=== PATIENT | female | born 1945 | race Caucasian/White ===

== ENCOUNTER 2022-06-18 11:58 | Outpatient (CLI) | payer MEDICARE, BC, SELFPAY ==
[2022-06-18 14:21] LABS: Albumin* 4.4 g/dL (3.3-5.0)
[2022-06-18 14:22] LABS: Chloride* 102 mmol/L (96-114); Potassium* 5.1 mmol/L (3.6-5.1); Sodium* 135 mmol/L (135-149)
[2022-06-18 14:24] LABS: Bilirubin Total* 1.2 mg/dL (0.1-1.5); Carbon Dioxide* 30 mmol/L (20-32); Cholesterol* 185 mg/dL (90-199); Creatinine* 0.7 mg/dL (0.5-1.5); Estimated Glomerular Filt Rate 90 ml/min
[2022-06-18 14:25] LABS: Alanine Aminotransferase* 24 U/L (4-35); Alkaline Phosphatase* 56 U/L (40-150); Aspartate Amino Transferase* 23 U/L (12-35); Blood Urea Nitrogen* 12 mg/dL (7-30); Calcium* 9.3 mg/dL (8.4-10.6); Glucose* 89 mg/dL (60-115); HDL Cholesterol* 75 mg/dL (>=50); LDL Cholesterol Calculated 91 mg/dL (<100); Total Protein* 6.6 g/dL (6.0-8.3); Triglycerides* 97 mg/dL (40-149)
[2022-06-18 14:48] LABS: Creatinine Urine 110.6 mg/dL
[2022-06-18 14:51] LABS: Microalbumin Creatinine Ratio 10 mg/g (0-30); Microalbumin Urine 2 mg/dL
== END 2022-06-18 11:59 | disposition home or self-care (01) ==
PROVIDERS: PCP Physician Assistant Medical; Visit Provider Physician Assistant Medical
DX: E78.5 Hyperlipidemia, unspecified (principal); I10 Essential (primary) hypertension; E87.1 Hypo-osmolality and hyponatremia; F32.4 Major depressive disorder, single episode, in partial remission
CPT/HCPCS: 80053; 80061; 82043; 82570

== ENCOUNTER 2023-04-25 08:52 | Outpatient (RCR) | payer MEDICARE, BC, SELFPAY ==
--- NOTE | 2023-05-01 12:39 | PT.OPE ---
PT [place] Outpatient Eval PT [facility] Outpatient Eval Start: 05/01/23 11:00 Freq: Status: Active Protocol: Document 04/25/23 17:30 CORIE (Rec: 05/01/23 12:33 CORIE [id number]) E-signed By Pedro Pablo Decker DPT, MS Physical Therapy Outpatient Evaluation Insurance Information Recert Due Date 07/24/23 Insurance Name Medicare B Medical Diagnosis Unilateral primary osteoarthritis, right hip; presence of right artificial hip joint Treating Diagnosis Decreased R hip ROM and flexibility, imbalance, gait dysfunction and R LE weakness. Subjective Subjective Pt is an otherwise healthy 78 y.o female who presents to PT prior to R anterior LOIS on 05/05/23 at [facility] with c/o chronic high levels of R hip pain since hiking along [facility] 11/2022. Walking has been very difficult and limited by pain but pt received recent OP PT at [facility] near her apartment for R LE strength and flexibility. Looking forward to surgery to return to walking, hiking, yoga, travelling and exercise classes at the [facility]. Lives alone in a 3rd story apartment with an elevator. Her daughter will provide assistance following surgery. PMH includes R hip OA . AGGR factors: walking, standing, squatting, sleeping, uneven surfaces. ALLEV factors: rest, ice, ibuprofen. Pain Comments -01/06 Current Work Status Retired Preferred Name Pat Precautions Therapy Limitations/Systems Review Not Limited Objective Functional Test Performed & Score LEFS: 8 Assessment Assessment/Impression Objectively, pt displays decreased R hip ROM and flexibility, imbalance, gait dysfunction and R LE weakness. R hip pain and R LE weakness leading to compensations with gait and pt plans on using a SPC or trekking poles once she is safe to progress from a FWW. Good response to instruction in her post-op HEP with pt currently performing HEP exercises that are more challenging than the post-op HEP provided, which she will continue up until surgery. She plans on receiving post-op OP PT at [facility] since this is near her apartment and current episode of care will be D/C. Primary Functional Limitations Walking, standing, squatting, sleeping, uneven surfaces Plan of Care Rehabilitation Potential Excellent Physical Therapy Goals Short-term goals to be completed in 1 week: 1. Pt will be independent and compliant with her HEP in preparation for surgery. MET Coordination/Communication With Referral Source Treatment Plan/Direct Interventions Therapeutic Exercises Frequency/Duration 1 visit prior to surgery then continuing PT at [facility] PT Patient Will Be Discharged From Therapy Completion of LTG(s),Skills Plateau,Independent w/HEP, Independently Progressing Evaluation Billing Untimed Code Treatment Minutes 26 Complexity Moderate Certification Information Initial Certification Date 04/25/23 Ending Certification Date 07/24/23 Provider Signature Shows Agreement With POC & Medical Necessity Physician Signature & Date Requested Please Sign/Date Here Physician Comment/Change : Physician NPI Number #
== END 2023-04-28 10:26 | disposition home or self-care (01) ==
PROVIDERS: PCP Physician Assistant Medical; Visit Provider Orthopaedic Surgery Sports Medicine
DX: M16.11 Unilateral primary osteoarthritis, right hip (principal); Z51.89 Encounter for other specified aftercare
CPT/HCPCS: 97110; 97162

== ENCOUNTER 2023-05-03 09:39 | Outpatient (CLI) | payer MEDICARE, BC, SELFPAY | END 2023-05-03 09:40 | disposition home or self-care (01) | PROVIDERS: PCP Physician Assistant Medical; Visit Provider Family Medicine | DX: Z01.818 Encounter for other preprocedural examination (principal) | CPT/HCPCS: 36415; 86850; 86900; 86901 ==

== ENCOUNTER 2023-05-05 10:26 | Day surgery (SDC) | payer MEDICARE, BC, SELFPAY ==
--- NOTE | 2023-04-28 10:16 | PT.OPE ---
PT [place] Outpatient Eval PT [facility] Outpatient Eval Start: 04/28/23 10:08 Freq: Status: Active Protocol: Document 04/25/23 16:20 [email or web address] (Rec: 04/28/23 10:11 CORIE [id number]) E-signed By Pedro Pablo Decker DPT, MS Physical Therapy Outpatient Evaluation Insurance Information Recert Due Date 07/24/23 Insurance Name Medicare B,Blue Cross/Blue Shield Medical Diagnosis Unilateral primary osteoarthritis, right hip; presence of right artificial hip joint Treating Diagnosis Decreased R hip ROM and flexibility, imbalance, gait dysfunction and R LE weakness Subjective Subjective Pt is an otherwise healthy 78 y.o female who presents to PT prior to R anterior LOIS on 05/05/23 at [facility] with c/o chronic high levels of R hip pain since hiking along [facility] 11/2022. Walking has been very difficult and limited by pain but pt received recent OP PT at [facility] near her apartment for R LE strength and flexibility. Looking forward to surgery to return to walking, hiking, yoga, travelling and exercise classes at the [facility]. Lives alone in a 3rd story apartment with an elevator. Her daughter will provide assistance following surgery. PMH includes R hip OA . AGGR factors: walking, standing, squatting, sleeping, uneven surfaces. ALLEV factors: rest, ice, ibuprofen. Pain Comments -02/06 Current Work Status Retired Preferred Name Pat Precautions Weight Bearing Status Weight Bear as Tolerated Therapy Limitations/Systems Review Not Limited Objective Functional Test Performed & Score LEFS: 10 Assessment Assessment/Impression Objectively, pt displays decreased R hip ROM and flexibility, imbalance, gait dysfunction and R LE weakness. R hip pain and R LE weakness leading to compensations with gait and pt plans on using a SPC or trekking poles once she is safe to progress from a FWW. Good response to instruction in her post-op HEP with pt currently performing HEP exercises that are more challenging than the post-op HEP provided, which she will continue up until surgery. She plans on receiving post-op OP PT at [facility] since this is near her apartment and current episode of care will be D/C. Primary Functional Limitations Walking, standing, squatting, sleeping, uneven surfaces Plan of Care Rehabilitation Potential Excellent Physical Therapy Goals Short-term goals to be completed in 1 week: 1. Pt will be independent and compliant with her HEP in preparation for surgery. MET Coordination/Communication With Referral Source Treatment Plan/Direct Interventions Gait Training,Therapeutic Exercises Frequency/Duration 1 visit prior to surgery then continuing PT at [facility] PT Patient Will Be Discharged From Therapy Completion of LTG(s),Skills Plateau,Independent w/HEP, Independently Progressing Evaluation Billing Untimed Code Treatment Minutes 38 Complexity Moderate Certification Information Initial Certification Date 04/25/23 Ending Certification Date 07/24/23 Provider Signature Shows Agreement With POC & Medical Necessity Physician Signature & Date Requested Please Sign/Date Here Physician Comment/Change : Physician NPI Number #
[2023-05-05] VITALS (22 sets, daily range): BP systolic 110–165; BP diastolic 63–89; PULSE 60–98; RESP 12–18; TEMP 35.9–36.8; O2SAT 93–100; BMI 25.9
[2023-05-05] MEDS: ACETAMINOPHEN 500 MG TABLET 1000 MG PO ×3 (07:08→23:46)
[2023-05-05] MEDS: OXYCODONE (CR) 10 MG TAB.ER.12H PO (07:08)
[2023-05-05] MEDS: fentaNYL 100 MCG/2 ML inj IVP (07:09)
[2023-05-05] MEDS: MIDAZOLAM HCL 1 MG/ML inj IVP (07:09)
--- NOTE | 2023-05-05 10:43 | SUR.PREOP ---
left wrist cat bite no drainage red though
--- NOTE | 2023-05-05 10:54 | SUR.PREOP ---
nasal swab done per order
--- NOTE | 2023-05-05 10:54 | W.PM.H&PU ---
History & Physical Update History & Physical Update H&P Reviewed and patient assessed: No changes noted
--- NOTE | 2023-05-05 11:02 | CRLHL7_ITS ---
For Patients: As a result of the Century Cures Act, medical imaging exams and procedure reports are released immediately into your electronic medical record. You may view this report before your referring provider. If you have questions, please contact your health care provider. INDICATION: Postoperative hip replacement. TECHNIQUE: AP view of the pelvis and lateral view of the right hip. COMPARISON: 05/05/2023 and 03/18/2023. FINDINGS: Postoperative changes of right total hip arthroplasty without evidence of immediate hardware related complication. There is subcutaneous emphysema within the right surgical bed, an expected postoperative finding. There are mild osteoarthritic degenerative changes of the left femoroacetabular joint. No suspicious osseous lesions. IMPRESSION: Status post right total hip arthroplasty without evidence of hardware related complication. Dictated by Durga Awad MD @ 05/06/2023 9:43:02 AM (Electronically Signed)
--- NOTE | 2023-05-05 12:15 | CRLHL7_ITS ---
For Patients: As a result of the Cures Act, medical imaging exams and procedure reports are released immediately into your electronic medical record. You may view this report before your referring provider. If you have questions, please contact your health care provider. Indication: Hip replacement surgery Technique: AP hip fluoroscopic image. Fluoroscopy time 35.0 seconds. Findings/Impression: Hardware from a right total hip arthroplasty is in satisfactory position. Dictated by Juan Latham MD @ 05/05/2023 3:20:31 PM (Electronically Signed)
[2023-05-05] MEDS: SODIUM CHLORIDE 0.9 % (FLUSH) 10 ML SYRINGE IVF (12:28)
[2023-05-05] MEDS: LACTATED RINGERS 1000 ML 1,000 ML 100 ML IV ×2 (12:30→14:09)
--- NOTE | 2023-05-05 12:38 | SUR.PREOP ---
TIME?OUT:?1235 PT/RN/MDA?VERIFICATION?OF?SURGICAL?SITE,?PROCEDURE,?AND?CONSENT OBTAINED?PRIOR?TO?INVASIVE?PROCEDURE.right hip RN BILL RECAPITULATION CLERK PT CONSENT
[2023-05-05] MEDS: TRANEXAMIC ACID 100 MG/ML INJ 1000 MG IV (13:22)
[2023-05-05] MEDS: CEFAZOLIN 2 GM in 0.9 % SODIUM CHLORIDE Mini-bag 100 ML IVPB (13:26)
--- NOTE | 2023-05-05 14:42 | P.ORPRC_ITS ---
Procedure Note Date of procedure: 05/05/23 Procedure: PREOPERATIVE DIAGNOSIS: 1. Right hip osteoarthritis, severe, primary POSTOPERATIVE DIAGNOSIS: 1. Right hip osteoarthritis, severe, primary PROCEDURE: 1. Right total hip arthroplasty-anterior approach 2. 21036 - intraoperative fluoroscopy up to 1 hour. SURGEON: Jd Edmond MD. SENIOR PRODUCT MARKETING MANAGER: Siddhartha Pat Pa-c; GRACIELA Faith - Of note, a skilled curatorial assistant was critical for this case to aid in patient positioning, tissue retraction, limb manipulation/positioning, and closure. ANESTHESIA: Spinal anesthetic EBL: 250 mL IMPLANTS: DePuy J&J uncemented total hip [place] cup size 50, hole eliminator, +0 neutral liner Actis stem, standard offset, size 4 +5 mm ceramic 32mm head COMPLICATIONS: None evident INDICATIONS: The patient is a pleasant 78-year-old female who has experienced severe right hip pain and difficulty bearing weight. Workup included x-rays which revealed severe osteoarthrosis in the hip. Given the deformity, the dysfunction, and the pain, as well as the failure of nonoperative management, recommendation was made for surgery. FINDINGS: Full-thickness chondral loss diffusely throughout the femoral head with osteophytes around the acetabulum. Large effusion upon entering the joint. Significantly sclerotic bone upon reaming the acetabulum, in particular. DESCRIPTION OF PROCEDURE: Following a thorough discussion of risks, benefits, and alternatives consent was obtained and the right hip was marked. The patient was brought to the operating room and placed supine on the operating table. Induction of anesthesia was undertaken. 1 g IV Ancef and 1 g tranexamic acid was administered within 1 hr of incision preoperatively. Proper time-out was performed identifying proper patient, site, procedure. The operative extremity was prepped and draped in the appropriate sterile fashion using ChloraPrep after the patient was positioned on the [place] table with head in neutral alignment and all bony prominences well padded. C-arm fluoroscopic imaging was utilized to confirm proper pelvis rotation and position, and to get true AP films of both the contralateral left, and the affected right hip. This is for comparison. A longitudinal incision was made starting approximately 1 cm distal to the ASIS, and 3-4 cm lateral. The incision was extended distally aiming toward the lateral border the patella. Sharp incision through skin and bovie cautery through the subcutaneous tissue allowed identification of the TFL fascia. This was sharply divided, and the fascia bluntly released from the muscle fibers as we dissected medial. Upon coming to the medial border, we were able to retract the TFL laterally, and penetrated the deeper fascia and identify the crossing circumflex vessels. These were ligated/cauterized. The rectus was elevated from the capsule, and retractors placed laterally and medially along the femoral neck to help with visualization of the capsule. We then performed an inverted T capsulotomy. The capsule was tagged for later repair. Retractors were placed inside the capsule. The femoral neck was visualized after releasing medially down to the lesser trochanter, along the saddle laterally, and up onto the acetabulum. The femoral neck cut was made in line with our preoperative templating. The head was removed in a single piece, and sized. We turned our attention to acetabular preparation. Initially, the labrum was resected from around the perimeter, the pulvinar was excised, allowing us to visualize the false wall. We started the reaming with a 43 mm reamer. This was medialized down to the true wall. We then enlarged our reamers sequentially up to one size less than the selected cup size. We trialed at the same size and found it to have an excellent fit. The selected cup was then opened, inserted, and impacted in line with the goal of 40? of abduction, and 20-25? of anteversion. This was confirmed on C-arm fluoroscopic imaging to be in the appropriate/goal position. Once the cup was placed we placed a hole eliminator and a liner consistent with preop planning. Attention was turned to the femoral preparation. The limb was extended, externally rotated, and adducted. The posteromedial capsule was released, as retractors were placed allowing excellent access to the proximal femur. Initially a box office manager was followed by canal finder followed by various broaches. We broached sequentially up to the size noted above, found it to have excellent rotational control, and trialing various heads and necks, revealed that appropriate neck offset, and the above noted head size provided the greatest stability, and sabianist of length, and offset. C-arm fluoroscopic imaging confirmed position of the stem, as well as leg lengths, which were compared with the pre procedure all fluoroscopic images. Trial implants were removed, the real femoral stem inserted, as was the appropriate head. After reducing, the leg was placed through range of motion and stability was confirmed anterior, posterior, and lateral. A 3 min Betadine soak was then performed, and thorough irrigation with normal saline followed. Closure of the capsule was performed with #1 PDS. Bleeding was confirmed to be controlled at this stage, and the TFL fascia was closed with #0 strata fix. Subcutaneous, and subcuticular closure was performed with 2-0 Vicryl and 4-0 Monocryl, respectively. Dressings were applied, and the patient was awoken from anesthesia and transferred the PACU in stable condition. A skilled curatorial assistant was critical for this case to aid in patient positioning, tissue retraction, acetabular and proximal femoral exposure, limb manipulation/positioning, dislocation/relocation, patient safety, and closure. PLAN: 1. Weight bear as tolerated operative extremity. 2. 23 hr perioperative antibiotics. 3. Ice. 4. PT/OT consults for ambulation assistance/mobility education. 5. Social work consult for discharge planning. 6. DVT prophylaxis with at SCDs, Abdon Hose, and Xarelto for x5 days followed by baby aspirin for a total of 1 month.
--- NOTE | 2023-05-05 15:38 | W.ANESCHARGE ---
Anesthesia Charges Start Date/Time Anesthesia Start Date: 05/05/23 Anesthesia Start Time: 12:54 Stop Date/Time Anesthesia Stop Date: 05/05/23 Anesthesia Stop Time: 15:37 Summary Extremes of Age - Over 70 or under 1: DIRECT MARKETING INTERN
[2023-05-05] MEDS: ONDANSETRON 2 MG/ML inj 4 MG IVP (15:58)
--- NOTE | 2023-05-05 16:25 | PM.IMCN1 ---
Date of Consult Patient: [facility] Patient Consult date: 05/05/23 Requesting Physician: Orthopedics Primary Care Provider: Nguyễn Bowman PA-C Consult Narrative Reason for consult: Postoperative management of hypertension, hyperlipidemia Narrative: Matilde Matthews is a 78 year old woman with advanced right Coxarthrosis undergoes elective right total hip arthroplasty today with Dr. Jd Cantu, orthopedic surgeon, with no apparent complications, estimated blood loss 250 mL. Last took her amlodipine and losartan yesterday. She takes 1 of these in the morning and 1 in the evening before she retires to bed. Review of Systems Status of ROS: Reports: 10 or more systems reviewed and unremarkable except as noted in History and below Narrative: Denies chest heaviness, pressure, tightness, or pain. Denies dyspnea at rest, paroxysmal nocturnal dyspnea, orthopnea, dyspnea with exertion. Denies cough. Denies fevers, rigors, diaphoresis. Denies dysuria, urgency, frequency, hematuria. Denies syncope or near-syncope. Denies nausea vomiting. Denies dyspepsia, dysphagia, odynophagia. Denies abdominal pain. Denies flank pain. Denies diarrhea or constipation. Denies weight gain or weight loss. Denies edema. Enjoys walking. Looking forward to being able to walk more freely after recovering from the surgery. Denies focal motor neurologic deficits. No recent trauma, injury, blood loss aside from the surgery that she underwent today. [facility] Medical History Osteoarthritis of right hip ?M16.11 - Unilateral primary osteoarthritis, right hip (ICD-10) Osteoarthritis of right knee ?M17.11 - Unilateral primary osteoarthritis, right knee (ICD-10) Peripheral neuropathy ?G62.9 - Polyneuropathy, unspecified (ICD-10) Hyponatremia ?E87.1 - Hypo-osmolality and hyponatremia (ICD-10) Hearing loss ?H91.90 - Unspecified hearing loss, unspecified ear (ICD-10) Depression ?F32.A - Depression, unspecified (ICD-10) Hypertension ?I10 - Essential (primary) hypertension (ICD-10) Hyperlipemia ?E78.5 - Hyperlipidemia, unspecified (ICD-10) Encounter for counseling regarding advance directives (07/28/10) ?Z71.89 - Other specified counseling (ICD-10) Surgical History History of tubal ligation ?Z98.51 - Tubal ligation status (ICD-10) Status post ORIF of fracture of ankle (05/13/13) ?Z98.890 - Other specified postprocedural states (ICD-10) ?Z87.81 - Personal history of (healed) traumatic fracture (ICD-10) History of removal of retained hardware (08/12/13) ?Z98.890 - Other specified postprocedural states (ICD-10) History of lumbar discectomy ?Z98.890 - Other specified postprocedural states (ICD-10) History of hysterectomy ?Z90.710 - Acquired absence of both cervix and uterus (ICD-10) History of foot surgery (09/26/08) ?Z98.890 - Other specified postprocedural states (ICD-10) History of bunionectomy ?Z98.890 - Other specified postprocedural states (ICD-10) Social History What is your current living situation?: I presently have a place to live Problems where you live: no known problems In the past 12 months, utilities in danger of being shut off: no In past 12 months, lack of transportation kept you from medical appts, meetings, work, or getting things needed for daily living: no In the past 12 mos, have been you worried that your food would run out before you had money to buy more?: never true In the past 12 mos, the food you bought just didn't last and you didn't have money to buy more?: never true Highest level of school completed/degree received: decline to answer Smoking Status: Former smoker What tobacco products do you use: cigarettes Smoking quit date/years: >15 years ago Do you use any of these nicotine containing products: None Second hand tobacco smoke exposure: No How often do you have a drink containing alcohol: monthly or less Alcohol type: hard liquor How many standard drinks containing alcohol do you have on a typical day: 1 or 2 How often do you have six or more drinks on one occasion: Never AUDIT-C Alcohol total score: 1 Non-prescribed substance use: denies use Caffeine: Yes (coffee) How often does anyone, including family, friends and others, physically hurt you: never How often does anyone, including family, friends and others, insult or talk down to you: never How often does anyone, including family, friends and others, threaten you with harm: never How often does anyone, including family, friends and others, scream or curse at you: never Little interest or pleasure in doing things: not at all Feeling down, depressed, or hopeless: not at all service: No Meds Home Medications and Allergies Home Medications Medication Instructions Recorded Confirmed Type mecobalamin (vitamin B12) 1,000 1,000 mcg PO DAILY 06/20/22 05/05/23 History mcg lozenges calcium carbonate 500 mg calcium 500 mg PO DAILY 03/27/23 05/05/23 History (1,250 mg) chewable tablet (Calcium 500) multivitamin (Multiple Vitamins 1 tab PO DAILY 03/27/23 05/05/23 History tablet) amlodipine 5 mg tablet 5 mg PO HS 05/04/23 05/05/23 History losartan 100 mg tablet 100 mg PO DAILY 05/04/23 05/05/23 History simvastatin 20 mg tablet 20 mg PO HS 05/04/23 05/05/23 History Allergies Allergy/AdvReac Type Severity Reaction Status Date / Time No Known Allergies Allergy Unknown Verified 05/05/23 07:11 Exam Narrative: Exam Narrative: Examine the patient in her hospital room post surgery. Appears comfortable and in no acute distress. Vision and hearing are normal. Alert, oriented to self, place, time, situation. From the, articulate, cooperative. Mood and affect are congruent. No icterus or conjunctival injection. Conjugate gaze. Pupils equally round and reactive to light and accommodation. Midline nasal septum. Oropharynx benign. Dentition in fair repair. Midline trachea. Supple neck. No head and neck lymphadenopathy. Lungs clear to auscultation without wheezing, rhonchi, or rales. Heart tones with regular rhythm, normal S1-S2, without murmur, gallop, rub. Abdomen with active bowel sounds, soft, nontender, without rebound or guarding. Extremities without edema. Const: Vital Signs, click to edit/add: Vital Signs - 24 hr 05/05/23 11:04 05/05/23 12:49 05/05/23 15:32 Temperature 98.3 F 97.2 F L Pulse Rate 90 75 60 Respiratory Rate 16 12 12 Blood Pressure 150/88 H 139/81 133/77 Pulse Oximetry 99 100 95 Oxygen Delivery Me thod Room Air Nasal Cannula Room Air Oxygen Flow Rate 3 05/05/23 15:35 05/05/23 15:40 05/05/23 15:45 Temperature Pulse Rate 62 63 63 Respiratory Rate 15 14 16 Blood Pressure 133/72 130/76 148/88 H Pulse Oximetry 94 95 94 Oxygen Delivery Me thod Oxygen Flow Rate 05/05/23 15:50 05/05/23 15:55 05/05/23 16:00 Temperature 97 F L Pulse Rate 63 65 64 Respiratory Rate 14 18 14 Blood Pressure 153/86 H 162/89 H 161/86 H Pulse Oximetry 93 95 97 Oxygen Delivery Me thod Room Air Oxygen Flow Rate Documenting provider has reviewed patient's vital signs: yes Assessment and Plan Assessment and plan (1) Osteoarthritis of right hip: Problem comment: Severe Status: Acute (2) Status post right hip replacement: Status: Acute (3) Hypertension: Status: Acute (4) Hyperlipemia: Status: Acute (5) Peripheral neuropathy: Status: Acute (6) Depression: Status: Acute (7) Hyponatremia: Problem comment: worsened by hctz Status: Acute Plan 1. Reviewed impression with patient. Answered her questions. 2. Will follow with Orthopedic surgery while in hospital. 3. Will resume her usual medications. 4. Have completed the hospitalist portion of the discharge orders. 5. Agree with perioperative antibiotic prophylaxis. 6. Agree with postoperative venous thromboembolism prophylaxis efforts.
[2023-05-05] MEDS: CEFAZOLIN 1 GM in 0.9 % SODIUM CHLORIDE Mini-bag 100 ML IVPB (17:30)
--- NOTE | 2023-05-05 18:59 | PC.NURSE ---
Patient arrived to Med/Surg from PACU at 1610. Pleasant, alert and oriented. Denies pain. Has remained in bed since arriving. Recently is able to wiggle toes bilaterally. Tolerating ice chips, water and food. Dressing clean, dry and intact.
[2023-05-05] MEDS: SENNOSIDES 1 TAB TABLET 2 TAB PO (21:10)
[2023-05-05] MEDS: SIMVASTATIN 20 MG TABLET PO (21:10)
[2023-05-05] MEDS: LACTATED RINGERS 1000 ML 1,000 ML 75 ML IV (23:46)
[2023-05-06] MEDS: CEFAZOLIN 1 GM in 0.9 % SODIUM CHLORIDE Mini-bag 100 ML IVPB (01:42)
[2023-05-06 03:00] VITALS: BP 142/72; PULSE 77; RESP 16; TEMP 36.5; O2SAT 97
[2023-05-06] MEDS: OXYCODONE 5 MG TABLET PO ×3 (04:16→13:34)
[2023-05-06] MEDS: hydrOXYzine pamoate 25 MG CAPSULE PO (04:17)
[2023-05-06] MEDS: ACETAMINOPHEN 500 MG TABLET 1000 MG PO ×2 (05:48→11:58)
--- NOTE | 2023-05-06 06:36 | PC.NURSE ---
End of shift: A&O, pleasant and cooperative. VSS w/ sats >90% on RA. CMS intact and +PP. denies n/v. Pt dangled and ambulated to the bathroom for the first time at 2200. When pt stood to get back to bed, she reported dizziness. promotion writer and other nurse assisted pt back on the toilet. Pt ened up having a syncopal episode. Staff assist called and managed to get pt back to bed. Pt came to and BP back in bed was stable. updated. Pt has been asymptomatic ever since. Has been using A2 to bathroom as a precaution. Pt voiding adequate amounts. Saline locked. Pt rating pain in right hip 12/07. see eMAR for intervention. dressing to hip c/d/i. Active ice to site.
[2023-05-06 06:42] LABS: Basophils Percent Auto 0.1 % (0.0-3.0); Hematocrit 34.8 % (33.0-51.0); Hemoglobin* 11.7 gm/dL (12.0-16.0); Immature Granulocytes Pct Auto 0.1 %; Lymphocytes Percent Auto 7.2 % (20-44); Mean Corpuscular HGB Conc 34 gm/dL (32-36); Mean Corpuscular Hemoglobin 31 pg (26-34); Mean Corpuscular Volume 91 fL (80-100); Monocytes Percent Auto 5.8 % (0.0-11.0); Neutrophils Percent Auto 86.8 % (42.0-72.0); Platelet Count* 311 K/uL (140-440); RDW Coefficient of Variation % 12.6 % (11.5-15.5); Red Blood Count 3.83 m/uL (4.00-5.20); White Blood Count* 12.06 K/uL (4.50-11.00)
[2023-05-06 06:58] LABS: Slide Review Reflex No
[2023-05-06 07:02] LABS: Potassium* 4.9 mmol/L (3.6-5.1); Sodium* 132 mmol/L (135-149)
[2023-05-06 07:05] LABS: Blood Urea Nitrogen* 16 mg/dL (7-30); Creatinine* 0.5 mg/dL (0.5-1.5); Est. Creatinine Clearance* 45.82; Estimated Glomerular Filt Rate 97 ml/min
[2023-05-06 07:30] VITALS: BP 140/71; PULSE 66; RESP 16; TEMP 36.4; O2SAT 98
[2023-05-06] MEDS: LOSARTAN POTASSIUM 50 MG TABLET 100 MG PO (08:38)
[2023-05-06] MEDS: FLUOXETINE HCL 20 MG CAPSULE PO (08:38)
[2023-05-06] MEDS: RIVAROXABAN 10 MG TABLET PO (08:38)
--- NOTE | 2023-05-06 08:38 | P.ORPN_ITS ---
Subjective Subjective Date Seen: 05/06/23 Principal diagnosis: Status postop day 1, right total hip arthroplasty - anterior approach Interval history: Patient reports doing well. Postop day 0, patient had a what sounds to be near syncopal episode while standing up from a toilet. She did not fall or hit her head. She was able to warrant staff of her symptom. Staff where there to assist her. Brought back to bed without incident. She has had no recurrences o f presyncopal, and has been able to get to the bathroom without issue. Pain managed with scheduled and PRN medications, ice. DVT prophylaxis: Rivaroxaban, bilateral knee high Abdon stockings, SCDs (which she greatly enjoys), walking. Denies fevers, chills, aches, N/V, CP, SOB/CASTELLON, or recurrent lightheadedness. Passing flatus. Ortho Exam Narrative Exam Narrative: -Patient appears comfortable in bed eating breakfast; no apparent acute distress. Daughter present -Alert and oriented times 3 -Operative hip swollen; soft tissues supple; no obvious erythema. Ecchymosis minimal. Warmth appropriate -Surgical dressing clean, dry, it is becoming dislodged from the proximal aspect.; no obvious drainage, no erythematous streaking peripheral to the bandage -Bilateral calves soft and supple; no significant swelling, edema, tenderness, erythema, discoloration, warmth, or palpable cords -2+ DP/PT pulses, intact dermatomes and myotomes distally (5/5 strength). No numbness about the lateral femoral cutaneous nerve distribution. Const Vital Signs, click to edit/add: Vital Signs - 24 hr 05/05/23 11:04 05/05/23 12:49 05/05/23 15:32 Temperature 98.3 F 97.2 F L Pulse Rate 90 75 60 Pulse Rate [Left Pulse Oximeter] Respiratory Rate 16 12 12 Blood Pressure 150/88 H 139/81 133/77 Blood Pressure [Right Arm] Pulse Oximetry 99 100 95 Oxygen Delivery Method Room Air Nasal Cannula Room Air Oxygen Flow Rate 3 05/05/23 15:35 05/05/23 15:40 05/05/23 15:45 Temperature Pulse Rate 62 63 63 Pulse Rate [Left Pulse Oximeter] Respiratory Rate 15 14 16 Blood Pressure 133/72 130/76 148/88 H Blood Pressure [Right Arm] Pulse Oximetry 94 95 94 Oxygen Delivery Method Oxygen Flow Rate 05/05/23 15:50 05/05/23 15:55 05/05/23 16:00 Temperature 97 F L Pulse Rate 63 65 64 Pulse Rate [Left Pulse Oximeter] Respiratory Rate 14 18 14 Blood Pressure 153/86 H 162/89 H 161/86 H Blood Pressure [Right Arm] Pulse Oximetry 93 95 97 Oxygen Delivery Method Room Air Oxygen Flow Rate 05/05/23 16:03 05/05/23 16:15 05/05/23 16:30 Temperature 97.3 F L 97.3 F L 97.4 F L Pulse Rate 65 Pulse Rate [Left Pulse Oximeter] 65 65 Respiratory Rate 18 18 16 Blood Pressure Blood Pressure [Right Arm] 165/83 H 165/83 H 152/86 H Pulse Oximetry 95 Oxygen Delivery Method Room Air Room Air Room Air Oxygen Flow Rate 05/05/23 16:45 05/05/23 17:00 05/05/23 17:15 Temperature 97.2 F L 97.4 F L 96.6 F L Pulse Rate Pulse Rate [Left Pulse Oximeter] 65 67 67 Respiratory Rate 16 18 16 Blood Pressure Blood Pressure [Right Arm] 151/85 H 148/84 H 153/86 H Pulse Oximetry 95 99 94 Oxygen Delivery Method Room Air Room Air Room Air Oxygen Flow Rate 05/05/23 17:45 05/05/23 18:15 05/05/23 19:15 Temperature 97.2 F L 97.6 F 97.0 F L Pulse Rate Pulse Rate [Left Pulse Oximeter] 67 69 76 Respiratory Rate 16 18 16 Blood Pressure Blood Pressure [Right Arm] 151/86 H 129/88 137/78 Pulse Oximetry 97 98 98 Oxygen Delivery Method Room Air Room Air Room Air Oxygen Flow Rate 05/05/23 20:15 05/05/23 21:15 05/05/23 22:15 Temperature 98.1 F 98.3 F 97.7 F Pulse Rate Pulse Rate [Left Pulse Oximeter] 78 77 71 Respiratory Rate 16 16 16 Blood Pressure Blood Pressure [Right Arm] 128/72 110/63 127/71 Pulse Oximetry 96 94 96 Oxygen Delivery Method Room Air Room Air Room Air Oxygen Flow Rate 05/05/23 23:00 05/06/23 03:00 Temperature 97.2 F L 97.7 F Pulse Rate Pulse Rate [Left Pulse Oximeter] 98 77 Respiratory Rate 16 16 Blood Pressure Blood Pressure [Right Arm] 115/70 142/72 H Pulse Oximetry 96 97 Oxygen Delivery Method Room Air Room Air Oxygen Flow Rate Assessment and Plan Assessment and plan (1) Status post right hip replacement: Problem details: POD1 right total hip arthroplasty, anterior approach (05/05/23) Status: Acute Plan - Complete 23 hour perioperative antibiotics. - PT/OT consult for education and assistance. - Social work consult for discharge planning - Prescribed analgesics as needed - DVT prophylaxis: Rivaroxaban, bilateral knee high Abdon Hose stockings and SCDs - Anticipation is for discharge to home with daughter today 05/06/2023 if the patient remains medically stable, pain is controlled, and they are safe with mobilization. * please place a Tegaderm broadly over the proximal aspect of the bandage to ensure good integrity for showering. Thank you.
[2023-05-06] MEDS: SENNOSIDES 1 TAB TABLET 2 TAB PO (08:43)
--- NOTE | 2023-05-06 09:30 | PC.SOCIAL ---
Discharge planning- Met with pt and pt's daughter in room to discuss discharge plans. Pt is ambulating well with therapy and will complete outpatient therapy from home. Pt will be staying with her daughter (Rashmi) for assistance during recovery. There are no identified social work needs.
[2023-05-06 11:30] VITALS: BP 124/53; PULSE 70; RESP 18; TEMP 36.6; O2SAT 97
--- NOTE | 2023-05-06 15:50 | PC.NURSE ---
PAIN CONTROLLED WITH SCHEDULED TYLENOL AND PRN OXYCODONE. DRESSING TO RIGHT HIP CLEAN AND INTACT; ROLLING BACK AT TOP OF DRESSING. REINFORCED WITH ADDITIONAL MEPILEX PER ORTHO. UP WITH A1, WALKER AND GAIT BELT. PATIENT WALKED WITH PHYSICAL THERAPY TO THERAPY ROOM. THERAPY REPORTED PATIENT HAD EPISODE OF FEELING DIZZY. CHECKED VITAL SIGNS AND ALL WNL. DR. MAR UPDATED. PATIENT ATE LUNCH AND AMBULATED WITH NURSING IN HALLWAY AGAIN WITH NO FURTHER C/O FEELING DIZZY OR LIGHTHEADED. REVIEWED DC INSTRUCTIONS WITH PATIENT AND HER DAUGHTER. SALINE LOCK DC'D AND PATIENT DC;D HOME VIA DAUGHTER. 2 ACTIVE ICE PACKS SENT WITH PATIENT.
== END 2023-05-06 14:01 | disposition home or self-care (01) ==
LOC: OR 10:26 → MEDSURG 10:30
PROVIDERS: PCP Physician Assistant Medical; Visit Provider Orthopaedic Surgery Sports Medicine
PROC: (CPT 27130; principal; 2023-05-05 12:15)
DX: M16.11 Unilateral primary osteoarthritis, right hip (principal); R55 Syncope and collapse; I10 Essential (primary) hypertension; E78.5 Hyperlipidemia, unspecified
CPT/HCPCS: 27130; 01214; 36415; 73501; 76000; 82565; 84132; 84295; 84520; 85025; 97110; 97116; 97161; 97165; 97530; 97535; 99100; A9270; C1776; J0665; J0690; J1100; J2250; J2405; J2704; J3010; J7120

== ENCOUNTER 2023-10-16 08:21 | Outpatient (CLI) | payer MEDICARE, BC, SELFPAY ==
--- OUTSIDE RECORDS SUMMARY | 2023-10-20 08:26 | XMS_ITS ---
Author Name Unknown Organization [facility] Address [address] [place] [address] Care Team Providers Care Older Worker Specialist Name Role Phone Unavailable Unavailable Unavailable Surgery Details Not on file Complications Check Surgery Details section. Procedure Estimated Blood Loss Check Surgery Details section. Procedure Findings Check Surgery Details section. Procedure Specimens Taken Check Surgery Details section.
--- OUTSIDE RECORDS SUMMARY | 2023-10-20 08:26 | XMS_ITS | Clinical Summary ---
Author Name Unknown Organization [facility] Address [address] [place] [address] Care Team Providers Care Environmental Protection Specialist Name Role Phone Elsewhere, Pcp Primary Care Provider Unavailabl e Source Comments Patient records contain information from all sites at [facility]. For routine questions regarding patient records, call [phone] during business hours, M-F 8:00 AM - 5:00 PM Central Time. Record requests for emergency care only can be directed to [phone] at any time.[facility] Allergies No known active allergies Medications Medication Sig Dispensed Refills Start Date End Date Status FLUoxetine (PROzac) 20 mg capsule Take 20 mg by mouth daily. Active simvastatin (ZOCOR) 20 mg tablet Take 20 mg by mouth at bedtime. Active multivitamin (multivitamin) tablet Take 1 tablet by mouth daily. Active calcium carbonate-vitamin D3 (CALCIUM 500 + D) 1,250 mg (500 mg calcium)-200 unit per tablet Take 1 tablet by mouth daily with breakfast. Active amLODIPine (NORVASC) 5 mg tablet 06/10/2022 Active losartan (COZAAR) 100 mg tablet 04/23/2022 Active Social History Tobacco Use Types Packs/Day Years Used Date Smoking Tobacco: Former Smokeless Tobacco: Never Comments:Stopped smoking 37 years ago. Used apx 1 pack per day Alcohol Use Standard Drinks/Week Comments Yes 7 (1 standard drink = 0.6 oz pur e alcohol) Humiliation, Afraid, Rape, and Kick questionnair e Answer Date Recorded Within the last year, have y ou been afraid of your partner or ex-partner? No 06/18/2022 Within the last year, have y ou been humiliated or emotionally abused in other ways by your partner or ex-partner? No Within the last year, have y ou been kicked, hit, slapped, or otherwise physically hurt by your partner or ex-partner? No 06/18/2022 Within the last year, have y ou been raped or forced to have any kind of sexual activity by your partner or ex-partner? No 06/18/2022 Social Connection and Isolat ion Panel [NHANES] Answer Date Recorded In a typical week, how many times do you talk on the phone with family, friends, or neighbors? More than three times a week 06/18/2022 How often do you get togethe r with friends or relatives? More than three times a week 06/18/2022 How often do you attend [facility] or adventist services? Never 06/18/2022 Do you belong to any clubs o r organizations such as jew groups, unions, fraternal or athletic groups, or school groups? Yes 06/18/2022 How often do you attend meet ings of the clubs or organizations you belong to? More than 4 times per year 06/18/2022 Are you , , di vorced, , never , or living with a partner? 06/18/2022 AUDIT-C Answer Date Recorded Q1: How often do you have a drink containing alcohol? 4 or more times a week 06/18/2022 Q2: How many drinks containi ng alcohol do you have on a typical day when you are drinking? 1 or 2 2 Q3: How often do you have si x or more drinks on one occasion? Never 06/18/2022 Overall Financial Resource Strain (CARDIA) Answe r Date Recorded How hard is it for you to pa y for the very basics like food, housing, medical care, and heating? Not hard at all 06/18/2022 [facility] of Occupat ional Health - Occupational Stress Questionnaire Answer Date Recorded Do you feel stress - tense, restless, nervous, or anxious, or unable to sleep at night because your mind is troubled all the time - these days? To some extent 06/18/2022 Exercise Vital Sign Answer Date Recorde d On average, how many days pe r week do you engage in moderate to strenuous exercise (like a brisk walk)? 4 days 06/18/2022 On average, how many minutes do you engage in exercise at this level? 40 min 06/18/2022 Hunger Vital Sign Answer Date Recorded Within the past 12 months, y ou worried that your food would run out before you got the money to buy more. Never true 06/18/20 Within the past 12 months, t he food you bought just didn't last and you didn't have money to get more. Never true 06/18/2022 PRAPARE - Transportation Answer Date Re corded In the past 12 months, has l ack of transportation kept you from medical appointments or from getting medications? No 05/31 In the past 12 months, has l ack of transportation kept you from meetings, work, or from getting things needed for daily living? No 06/18/2022 Housing Stability Vital Sign Answer Sam e Recorded In the last 12 months, was t here a time when you were not able to pay the mortgage or rent on time? No 06/18/2022 In the last 12 months, how many places have you lived? 2 06/18/2022 In the last 12 months, was t here a time when you did not have a steady place to sleep or slept in a skilled nursing (including now)? No 06/18/2022 Nutrition Answer Date Recorded Nutrition: EVOO Fat Source Yes 06/18 On average, how many serving s of fruits and vegetables do you eat per day (serving size is equal to 1 cup or approximately the size of a tennis ball)? 2-3 06/18/2022 Dental Answer Date Recorded Dental: Regular Dentist Yes 06/18/20 Employment Answer Date Recorded Employment status Retired 06/18/2022 Education Answer Date Recorded What is the highest level of school you have completed or the highest degree you have received? Professional school degree (e.g., MD, DDS, DVM, MANJIT) 06/18/2022 Sex and Gender Information Value Date Recorded Sex Assigned at Female 06/18/2022 7:14 AM SENIOR INFORMATICA DEVELOPER Gender Identity Female 06/18/2022 7:14 AM SENIOR INFORMATICA DEVELOPER Sexual Orientation Straight 06/18/2022 7: 14 AM SENIOR INFORMATICA DEVELOPER Plan of Treatment Health Maintenance Due Date Last Done Comments Creatinine Level (Kidney Fun ction Test) 1945 Hepatitis C Screening 1945 Potassium Level 1945 Sodium Level 1945 Depression Screening (Annual PHQ-2) 06/30/2023 Fall Risk Screen (Annual) 06/30/2023 COVID-19 Vaccine (7 - 2022-2 4 season) 2023 03/26/2023, 04/10/2022, 11/06/2021, Additional history exists DTaP,Tdap,and Td Vaccines (3 - Td or Tdap) 05/05/2028 05/05/2018, 08/27/2007 Pneumococcal vaccine (65+ years) Completed 03/24/20 15, 01/26/2013 Zoster Vaccines Completed 06/18/2019, 01/2019, 04/01/2012 Influenza Vaccine Completed 03/26/2023, , 04/03/2021, Additional history exists Medical Devices Implanted Type Area Zoning Technician Device Identifier Shelf Expiration Date Model / Serial / Lot Hardware E.G. Pins/Screws/R ods Hardware e.g. pins/screws/ rods Left: Ankle Hip Implant-2022 Implanted:09/2022 (Quantity not on file) Hip Implant Right: Hip Care Teams Environmental Protection Specialist Relationship Specialty Start Date End Date Elsewhere, Pcp PCP - General Family Medicine 03/10/18
--- OUTSIDE RECORDS SUMMARY | 2023-10-20 08:26 | XMS_ITS | Referral Summary ---
Author Name Unknown Organization [facility] Address [address] [place] [address] Care Team Providers Care Staff Electrical Engineer Name Role Phone Elsewhere, Pcp Primary Care Provider Unavailabl e Source Comments Patient records contain information from all sites at [facility]. For routine questions regarding patient records, call [phone] during business hours, M-F 8:00 AM - 5:00 PM Central Time. Record requests for emergency care only can be directed to [phone] at any time.[facility] Allergies No known active allergies Medications [...] week 06/18/2022 How often do you attend [facility] or moravian services? Never 06/18/2022 Do you belong to any clubs o r organizations such as zoroastrianism groups, unions, fraternal or athletic groups, or [...] and heating? Not hard at all 06/18/2022 [facility] of Occupat ional Health - Occupational Stress [...] place to sleep or slept in a correction (including now)? No 06/18/2022 Nutrition Answer Date [...] Sex Assigned at Female 06/18/2022 7:14 AM PHYSICAL EDUCATION TEACHER Gender Identity Female 06/18/2022 7:14 AM PHYSICAL EDUCATION TEACHER Sexual Orientation Straight 06/18/2022 7: 14 AM PHYSICAL EDUCATION TEACHER Plan of Treatment Not on file Medical Devices Implanted Type Area Metal Bonding Crib Attendant Device Identifier Shelf Expiration Date Model / Serial / Lot Hardware E.G. Pins/Screws/R ods Hardware e.g. pins/screws/ rods Left: Ankle Hip Implant-2022 Implanted:09/2022 (Quantity not on file) Hip Implant Right: Hip Care Teams Staff Electrical Engineer Relationship Specialty Start Date End Date Elsewhere, Pcp PCP - General Family Medicine 03/10/18
== END 2023-10-16 08:22 | disposition home or self-care (01) ==
LOC: NFLDREF 10-20 08:23
PROVIDERS: PCP Physician Assistant Medical; Referring Provider Physician Assistant Medical; Visit Provider Physician Assistant Medical
DX: I10 Essential (primary) hypertension (principal); E87.1 Hypo-osmolality and hyponatremia; E78.2 Mixed hyperlipidemia; F32.4 Major depressive disorder, single episode, in partial remission
CPT/HCPCS: 80053; 80061; 84443

== ENCOUNTER 2024-11-24 11:50 | Outpatient (CLI) | payer MEDICARE, BC, SELFPAY | END 2024-11-24 11:51 | disposition home or self-care (01) | LOC: NFLDREF 11-26 15:21 | PROVIDERS: PCP Physician Assistant Medical; Referring Provider Physician Assistant Medical; Visit Provider Physician Assistant Medical | DX: E78.2 Mixed hyperlipidemia (principal); I10 Essential (primary) hypertension; M85.80 Other specified disorders of bone density and structure, unspecified site; F32.4 Major depressive disorder, single episode, in partial remission | CPT/HCPCS: 80053; 80061; 84443 ==

== ENCOUNTER 2024-12-22 12:39 | Outpatient (CLI) | payer MEDICARE, BC, SELFPAY ==
--- OUTSIDE RECORDS SUMMARY | 2024-12-08 11:20 | XMS_ITS | Encounter Summary ---
Author Organization [facility] Address [address] [place] [address]. [place] [address] Care Team Providers Care Airplane Dispatcher Name Role Phone No Ref-Primary, Physician Primary Care Provider Reason for Visit * Reason Comments Urgent Care Had an episode that lasted about 20 mins this AM-chest pain, shallow breathing, cold sweats and exhaustion. Still feels like she is exhausted and having brain fog. Was reading the paper when this happened, not doing any other activities. Has had mini episodes in the past of chest pain but never was seen for it. Encounter Details Date Type Department Care Team (Late st Contact Info) Description 12/08/2024 11:20 AM CDT Office Visit [facility] [address] [place] [id number] Sintia Mitchell PA-C [address] [place] [address] Acute chest pain (Primary Dx) Social History Tobacco Use Types Packs/Day Years Used Date Smoking Tobacco: Former Cigarettes Smokeless Tobacco: Never Alcohol Use Standard Drinks/Week Comments Not Asked 0 (1 standard drink = 0.6 oz pur e alcohol) Food Insecurity Answer Date Recorded Within the past 12 months, d id you worry that your food would run out before you got money to buy more? No 12/09/2024 Within the past 12 months, d id the food you bought just not last and you didn t have money to get more? No 12/09/2024 Housing Stability Answer Date Recorded Do you have housing? (Housin g is defined as stable permanent housing and does not include staying outside in a car, in a tent, in an abandoned building, in an overnight intermediate, or couch-surfing.) Yes 12/09/2024 Are you worried about losing your housing? No 12/09/2024 Financial Resource Strain Answer Date R ecorded Within the past 12 months, h ave you or your family members you live with been unable to get utilities (heat, electricity) when it was really needed? No 12/09/2024 Transportation Needs Answer Date Record ed Within the past 12 months, h as lack of transportation kept you from medical appointments, getting your medicines, non-medical meetings or appointments, work, or from getting things that you need? 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 Gender Identity Not on file Sexual Orientation Not on file Travel History Travel Start Travel End [place] 11/12/2024 11/22/2024 documented as of this encounter Last Filed Vital Signs Vital Sign Reading Time Taken Comments Blood Pressure 134/77 12/08/2024 11:14 AM CDT Pulse 75 12/08/2024 11:14 AM CDT Temperature 36.7 C (98.1 F) 12/08/2024 11:14 AM CDT Respiratory Rate 18 12/08/2024 11:14 AM CDT Oxygen Saturation 98% 12/08/2024 11:14 AM CDT Inhaled Oxygen Concentration - - Weight 73 kg (161 lb) 12/08/2024 11:14 AM CDT Height 170.2 cm (5' 7) 12/08/2024 11:14 AM CDT Body Mass Index 25.22 12/08/2024 11:14 AM CDT documented in this encounter Progress Notes * Narcisa Velasco MA - 12/08/2024 11:20 AM CDT Urgent Care Clinic Visit Rapid rooming was initiated. Provider was consulted, patient will remain in room and provider will be with patient as soon as possible. Chief Complaint Patient presents with Urgent Care Had an episode that lasted about 20 mins this AM-chest pain, shallow breathing, cold sweats and exhaustion. Still feels like she is exhausted and having brain fog. Was reading the paper when this happened, not doing any other activities. Has had mini episodes in the past of chest pain but never wasseen for it. 12/08/2024 11:11 AM Additional Questions Roomed by Narcisa Accompanied by Daughter 12/08/2024 11:11 AM Patient Reported Additional Medications Patient reports taking the following new medications Multivitamin, Vitamin B12, Calcium, Magnesium * Sintia Mitchell PA-C - 12/08/2024 11:20 AM CDT Assessment & Plan 1. Acute chest pain (Primary) Since resolved. Feeling mild lightheadedness, and general fatigue and brain fog. She has a normal physical exam, VSS. No ST depression or elevation on EKG. Her history of 20 minutes of squeezing chest pain, diaphoresis and nausea is concerning for ACS. Advised ER - EMS declined and her daughter will drive her to [facility] now, RN notified. - EKG 12-lead complete w/read - Clinics Sintia Mitchell PA-C [facility] CHIEF COMPLAINT: Chief Complaint Patient presents with Urgent Care Had an episode that lasted about 20 mins this AM-chest pain, shallow breathing, cold sweats and exhaustion. Still feels like she is exhausted and having brain fog. Was reading the paper when this happened, not doing any other activities. Has had mini episodes in the past of chest pain but never wasseen for it. Roni Clayton is a 79 year old female who presents to clinic today for evaluation after an episode of chest pain. Symptoms started about 1.5 hours ago. Patient was sitting reading the paper, and had a sensation ofchest squeezing. That lasted about 2 minutes. Following the episode of chest pain, she had diaphoresis. She endorses having mild nausea, but also feels like she could have diarrhea. The pain has since subsided. She has felt very fatigue with some brain fog and lightheadedness since the event. She has felt this way in the past, typically at rest and not with exercise, that has never lasted this long. No pleurisy, cough, hemoptysis, or leg swelling. Recent flight from [place], returned on November 22 No past medical history on file. No past surgical history on file. Social History Tobacco Use Smoking status: Former Types: Cigarettes Smokeless tobacco: Never Substance Use Topics Alcohol use: Not on file Current Outpatient Medications Medication Sig Dispense Refill amLODIPine (NORVASC) 5 MG tablet Take 5 mg by mouth. (Patient taking differently: Take 5 mg by mouth daily.) FLUoxetine (PROZAC) 20 MG capsule Take 20 mg by mouth daily. losartan (COZAAR) 100 MG tablet Take 1 tablet by mouth daily at 2 pm. simvastatin (ZOCOR) 20 MG tablet (Patient taking differently: Take 20 mg by mouth at bedtime.) No current facility-administered medications for this visit. No Known Allergies 10 point ROS of systems were all negative except for pertinent positives noted in my HPI. Exam: BP 134/77 (BP Location: Right arm, Patient Position: Sitting, Cuff Size: Adult Regular) Pulse 75 Temp 98.1 ??F (36.7 ??C) (Tympanic) Resp 18 Ht 1.702 m (5' 7) Wt 73 kg (161 lb) LMP (LMP Unknown) SpO2 98% BMI 25.22 kg/m?? Constitutional: healthy, alert and no distress ENT: MMM. throat without tonsillar hypertrophy or erythema Neck: neck is supple, no cervical lymphadenopathy or nuchal rigidity Cardiovascular: RRR Respiratory: CTA bilaterally, no rhonchi or rales Gastrointestinal: soft and nontender Skin: no rashes Neurologic: Speech clear, gait normal. Moves all extremities. EKG -- First degree block. Sinus rhythm documented in this encounter Plan of Treatment Not on file documented as of this encounter Procedures Procedure Name Priority Date/Time Associated Diagnosis Comments EKG 12-LEAD COMPLETE W/READ - CLINICS Routine 12/08/2024 11:22 AM CDT Acute chest pain documented in this encounter Results * EKG 12-lead complete w/read - Clinics (12/08/2024 11:22 AM CDT) Sintia Mitchell PA-C ECG ORDERABLES Final Result documented in this encounter Visit Diagnoses Diagnosis Acute chest pain- Primary Chest pain, unspecified documented in this encounter Care Teams Airplane Dispatcher Relationship Specialty Start Date End Date No Ref-Primary, Physician PCP - General 08/15/24 documented as of this encounter
--- OUTSIDE RECORDS SUMMARY | 2024-12-08 13:02 | XMS_ITS | Encounter Summary ---
Author Organization [facility] Address [address] [place] [address] Care Team Providers Care Radio Officer Name Role Phone No Ref-Primary, Physician Primary Care Provider Reason for Visit * Reason Comments Chest Pain * Auth/Cert (Routine) Specialty Diagnoses / Procedures Referred By Guero t Referred To Contact Med Surg Diagnoses Chest pain with moderate risk for cardiac etiology Chest pain with moderate risk for cardiac etiology Chest pain Jaspreet Funk MD [address] [place] [address] Phone: tel: fax: [facility]ation [facility] [address] [place] [address] Phone: tel: Referral ID Status Reason Start Date Expiration Date Visits Re quested Visits Authorized [id number] 1 1 Encounter Details Date Type Department Care Team (Late st Contact Info) Description 12/08/2024 1:02 PM CDT - 12/09/2024 12:32 PM T Hospital Encounter [facility] [address] [place] [address] Nathalia Roberson MD [facility] [address] [place], [place] [id number] Jaspreet Funk MD [address], [place] [id number] Cole Caraballo MD [facility] [address] [place] [address] Chest pain with moderate risk for cardiac etiology Discharge Disposition: Home or Self Care Social History Tobacco Use Types Packs/Day Years [...] Answer Date Recorded Do you have housing? (Praful g is defined as stable permanent housing and does not include staying outside in a car, in a tent, in an abandoned building, in an overnight detention, or couch-surfing.) Yes 12/09/2024 Are you worried [...] on file Legal Sex Female 3:20 AM [employer] INTER[employer] Gender Identity Not on file Sexual Orientation Not on file Travel History Travel Start Travel End [place] 11/12/2024 11/22/2024 documented as of this encounter Last Filed Vital Signs Vital Sign Reading Time Taken Comments Blood Pressure 138/71 12/09/2024 11:05 AM CDT Pulse 79 12/09/2024 11:05 AM CDT Temperature 36.8 C (98.3 F) 12/09/2024 11:05 AM CDT Respiratory Rate 16 12/09/2024 11:05 AM CDT Oxygen Saturation 96% 12/09/2024 11:05 AM CDT Inhaled Oxygen Concentration - - Weight 73.9 kg (163 lb) 12/08/2024 10:40 PM CDT Height 170.2 cm (5' 7) 12/08/2024 10:40 PM CDT Body Mass Index 25.53 12/08/2024 10:40 PM CDT documented in this encounter Discharge Summaries * Italia Carrillo PA-C - 12/09/2024 10:48 AM CDT [facility] Discharge Summary Hospitalist Date of Admission: 12/08/2024 Date of Discharge: 12/09/2024 Provider: Sylwia Carrillo PA-C Date of Service (when I last saw the patient): 12/09/24 Discharge Diagnoses Atypical chest pain, ruled out ACS Other medical issues: Past Medical History: Diagnosis Date Depressive disorder HLD (hyperlipidemia) Hypertension History of Present Illness Lorie Matthews is a 79 year old female who has past medical history of hypertension and hyperlipidemia who presents to [facility] on the evening of 12/08/2024 for evaluation of chestpain. She endorses an episode of squeezing chest pain this morning while she was sitting reading which lasted approximately 5 to 10 minutes. She endorses clamminess as well as nausea. Denies any radiation of the pain. She states that she has had several episodes similar to this over the past few months typically lasting 3 to 4 minutes per episode. Pain only occurs at rest. Does not have an exertional component. She currently denies any shortness of breath or chest pain. She recently returned toa visit from [place] on 11/22/2024. No history of blood clots, known cardiac issues, or chronic respiratory issues. Denies any leg swelling, hemoptysis, or difficulty ambulating. She does have a family history of her mother dying of a heart attack at age 67 and other family members having heart issues. Please see the admission history and physical for full details. Hospital Course Lorie Matthews was admitted on 12/08/2024. The following problems were addressed during her hospitalization: Atypical chest pain, rule out ACS -No arrhythmias on telemetry overnight -Troponins WNL -Stress echocardiogram on 12/09 negative for inducible ischemia or infarction -A1c, TSH WNL -Cholesterol showed LDL of 106, discussed with patient follow-up with primary care to monitor and consider increasing simvastatin -continue with no changes to amlodipine, losartan, simvastatin - Patient follow-up with primary care if continued to have symptoms, suspect symptoms may be in relation to stress/anxiety Pending Results None Code Status DNR Primary Care Physician Physician No Ref-Primary Exam: BP 139/75 (BP Location: Left arm) Pulse 79 Temp 98.8 ??F (37.1 ??C) (Oral) Resp 16 Ht 1.702m (5' 7) Wt 73.9 kg (163 lb) LMP (LMP Unknown) SpO2 95% BMI 25.53 kg/m?? General: pleasant, sitting up in bed, A&Ox3, NAD Lungs: CTAB without wheezing or rales CV: RRR without murmur or rub Abdomen: soft, nontender, nondistended, normoactive bowel sounds Skin: warm, dry Ext: no LE edema Discharge Disposition Discharged to home Consultations This Hospital Stay None Time Spent on this Encounter I, Italia Carrillo PA-C, personally saw the patient today and spent greater than 30 minutes discharging this patient. Discharge Orders Reason for your hospital stay You were admitted to the observation unit for chest pain. Your heart was monitored overnight with no abnormal findings. Your cardiac enzymes were negative for heart attack. You had an exercise stressechocardiogram that was negative for heart disease so we do not believe your chest pain was relatedto your heart. Other possibilities include reflux, stress, and musculoskeletal strain. We recommendyou follow up with your primary doctor if you continue to have pain. Of note your cholesterol was checked this stay and your LDL was slightly elevated at 106, discuss with primary care about monitoring and considering increasing your statin if remains elevated >100. Activity Your activity upon discharge: activity as tolerated NO Follow-up Care Needed NO follow-up care needed for this patient. Diet Follow this diet upon discharge: Current Diet:Orders Placed This Encounter Combination Diet Regular Diet, limit caffeine to 1-2 cups of coffee per day if noticing contributing to chest pain episodes Discharge Medications Current Discharge Medication List CONTINUE these medications which have NOT CHANGED Details amLODIPine (NORVASC) 5 MG tablet Take 5 mg by mouth daily. calcium carbonate-vitamin D (CALTRATE) 600-10 MG-MCG per tablet Take 1 tablet by mouth at bedtime. cyanocobalamin (VITAMIN B-12) 1000 MCG tablet Take 1,000 mcg by mouth daily. FLUoxetine (PROZAC) 20 MG capsule Take 20 mg by mouth daily. losartan (COZAAR) 100 MG tablet Take 100 mg by mouth daily. Magnesium 400 MG CAPS Take 1 capsule by mouth at bedtime. multivitamin w/minerals (MULTI-VITAMIN) tablet Take 1 tablet by mouth daily. simvastatin (ZOCOR) 20 MG tablet Take 20 mg by mouth at bedtime. Allergies No Known Allergies Data Results for orders placed or performed during the hospital encounter of 12/08/24 Chest XR, PA & LAT Status: None Narrative EXAM: XR CHEST 2 VIEWS LOCATION: [facility] DATE: 12/08/2024 INDICATION: Central chest pain lasted ~ 15min COMPARISON: None. Impression IMPRESSION: No focal airspace opacities, pleural effusion or pneumothorax. The cardiomediastinal silhouettes are normal. Basic metabolic panel (BMP) Status: Abnormal Result Value Ref Range Sodium 134 (L) 135 - 145 mmol/L Potassium 4.7 3.4 - 5.3 mmol/L Chloride 97 (L) 98 - 107 mmol/L Carbon Dioxide (CO2) 27 22 - 29 mmol/L Anion Gap 10 7 - 15 mmol/L Urea Nitrogen 11.3 8.0 - 23.0 mg/dL Creatinine 0.81 0.51 - 0.95 mg/dL GFR Estimate 74 >60 mL/min/1.73m2 Calcium 9.8 8.8 - 10.4 mg/dL Glucose 95 70 - 99 mg/dL Extra Tube ([place] Draw) Status: None Narrative The following orders were created for panel order Extra Tube ([place] Draw). Procedure Abnormality Status --------- ------ Extra Blue Top Tube[[id number]] Final result Extra Red Top Tube[[id number]] Final result Please view results for these tests on the individual orders. Troponin T, High Sensitivity Status: Normal Result Value Ref Range Troponin T, High Sensitivity 7 <=14 ng/L CBC with platelets and differential Status: None Result Value Ref Range WBC Count 6.9 4.0 - 11.0 10e3/uL RBC Count 4.26 3.80 - 5.20 10e6/uL Hemoglobin 13.1 11.7 - 15.7 g/dL Hematocrit 38.5 35.0 - 47.0 % MCV 90 78 - 100 fL MCH 30.8 26.5 - 33.0 pg MCHC 34.0 31.5 - 36.5 g/dL RDW 12.7 10.0 - 15.0 % Platelet Count 331 150 - 450 10e3/uL % Neutrophils 68 % % Lymphocytes 21 % % Monocytes 8 % % Eosinophils 3 % % Basophils 1 % % Immature Granulocytes 0 % NRBCs per 100 WBC 0 <1 /100 Absolute Neutrophils 4.7 1.6 - 8.3 10e3/uL Absolute Lymphocytes 1.4 0.8 - 5.3 10e3/uL Absolute Monocytes 0.6 0.0 - 1.3 10e3/uL Absolute Eosinophils 0.2 0.0 - 0.7 10e3/uL Absolute Basophils 0.1 0.0 - 0.2 10e3/uL Absolute Immature Granulocytes 0.0 <=0.4 10e3/uL Absolute NRBCs 0.0 10e3/uL Extra Blue Top Tube Status: None Result Value Ref Range Hold Specimen JIC Extra Red Top Tube Status: None Result Value Ref Range Hold Specimen JIC Troponin T, High Sensitivity Status: Normal Result Value Ref Range Troponin T, High Sensitivity 8 <=14 ng/L Hemoglobin A1c Status: Normal Result Value Ref Range Estimated Average Glucose 105 <117 mg/dL Hemoglobin A1C 5.3 <5.7 % TSH with free T4 reflex Status: Normal Result Value Ref Range TSH 1.40 0.30 - 4.20 uIU/mL Basic metabolic panel Status: Normal Result Value Ref Range Sodium 137 135 - 145 mmol/L Potassium 4.4 3.4 - 5.3 mmol/L Chloride 103 98 - 107 mmol/L Carbon Dioxide (CO2) 26 22 - 29 mmol/L Anion Gap 8 7 - 15 mmol/L Urea Nitrogen 12.6 8.0 - 23.0 mg/dL Creatinine 0.68 0.51 - 0.95 mg/dL GFR Estimate 89 >60 mL/min/1.73m2 Calcium 9.0 8.8 - 10.4 mg/dL Glucose 97 70 - 99 mg/dL CBC with platelets Status: Normal Result Value Ref Range WBC Count 5.2 4.0 - 11.0 10e3/uL RBC Count 3.95 3.80 - 5.20 10e6/uL Hemoglobin 12.0 11.7 - 15.7 g/dL Hematocrit 35.8 35.0 - 47.0 % MCV 91 78 - 100 fL MCH 30.4 26.5 - 33.0 pg MCHC 33.5 31.5 - 36.5 g/dL RDW 12.7 10.0 - 15.0 % Platelet Count 290 150 - 450 10e3/uL Lipid panel reflex to direct LDL Status: Abnormal Result Value Ref Range Cholesterol 184 <200 mg/dL Triglycerides 68 <150 mg/dL Direct Measure HDL 64 >=50 mg/dL LDL Cholesterol Calculated 106 (H) <100 mg/dL Non HDL Cholesterol 120 <130 mg/dL Patient Fasting > 8hrs? Unknown Narrative Cholesterol Desirable: < 200 mg/dL Borderline High: 200 - 239 mg/dL High: >= 240 mg/dL Triglycerides Normal: < 150 mg/dL Borderline High: 150 - 199 mg/dL High: 200-499 mg/dL Very High: >= 500 mg/dL Direct Measure HDL Female: >= 50 mg/dL Male: >= 40 mg/dL LDL Cholesterol Desirable: < 100 mg/dL Above Desirable: 100 - 129 mg/dL Borderline High: 130 - 159 mg/dL High: 160 - 189 mg/dL Very High: >= 190 mg/dL Non HDL Cholesterol Desirable: < 130 mg/dL Above Desirable: 130 - 159 mg/dL Borderline High: 160 - 189 mg/dL High: 190 - 219 mg/dL Very High: >= 220 mg/dL Troponin T, High Sensitivity Status: Normal Result Value Ref Range Troponin T, High Sensitivity 7 <=14 ng/L EKG 12-lead, tracing only Status: None Result Value Ref Range Systolic Blood Pressure mmHg Diastolic Blood Pressure mmHg Ventricular Rate 75 BPM Atrial Rate 75 BPM TX Interval 224 ms QRS Duration 106 ms QT 390 ms QTc 435 ms P [place] 62 degrees R AXIS -44 degrees T [place] 36 degrees Interpretation ECG Sinus rhythm with 1st degree A-V block with Premature atrial complexes Left axis deviation Moderate voltage criteria for LVH, may be normal variant ( R in aVL , [place] product ) Abnormal ECG No previous ECGs available Unconfirmed report - interpretation of this ECG is computer generated - see medical record for final interpretation Confirmed by - EMERGENCY ROOM, PHYSICIAN ([id number]), editor publications Sylvester Hartman ([id number]) on 12/08/2024 12:38:10PM EKG 12-lead, tracing only Status: None Result Value Ref Range Systolic Blood Pressure mmHg Diastolic Blood Pressure mmHg Ventricular Rate 70 BPM Atrial Rate 70 BPM TX Interval 224 ms QRS Duration 106 ms QT 406 ms QTc 438 ms P [place] 65 degrees R AXIS -44 degrees T [place] 48 degrees Interpretation ECG Sinus rhythm with 1st degree A-V block Left axis deviation Minimal voltage criteria for LVH, may be normal variant ( [place] product ) Abnormal ECG When compared with ECG of 08-Dec-2024 12:18, Premature atrial complexes are no longer Present Unconfirmed report - interpretation of this ECG is computer generated - see medical record for final interpretation Confirmed by - EMERGENCY ROOM, PHYSICIAN ([id number]), editor publications Sylvester Hartman ([id number]) on 12/08/2024 3:48:33 PM Echo Stress Echocardiogram Status: None Narrative [id number] [facility] [id number]^MARIELA^SAE^YULIANA [facility] Echocardiography Laboratory [address] [place] [id number] Name: LORIE MATTHEWS : 1945 Study Date: 12/09/2024 07:20 AM Age: 79 yrs Gender: Female Patient Location: [facility] Reason For Study: Chest Pain History: Chest Pain Ordering Physician: SAE SIERRA Referring Physician: None Performed By: Deb Fraga BSA: 1.9 m2 Height: 67 in Weight: 163 lb HR: 74 BP: 118/72 mmHg Procedure Stress Echo Treadmill with two dimensional, color and spectral Doppler. Optison contrast given intravenously [[facility] #[id number]]. Interpretation Summary Exercise stress echocardiogram was negative for ischemia or infarction at an exercise capacity of 7 METS and 94% of the target heart rate. There was no chest pain or significant ST changes with exercise. The Ro treadmill score was low risk ( >5 Ro score). Stress The patient exercised 6:18. RPP [id number]. There was a normal BP response to exercise. This study was stopped as the patient achieved an adequate exercise effort for a diagnostic study. The patient exhibited no chest pain during exercise. Target Heart Rate was achieved. The Ro treadmill score was low risk ( >5 Ro score). There was no chest pain or significant ST changes with exercise. The visual ejection fraction is 65-70%. Left ventricular cavity size decreases with exercise. Global LV systolic function augments with exercise. Normal resting wall motion and no stress-induced wall motion abnormality. Baseline The patient is in normal sinus rhythm. The visual ejection fraction is estimated at 55-60%. Stress Results Protocol: Servando Maximum Predicted HR: 142 bpm Target HR: 121 bpm % Maximum Predicted HR: 94 % Duration Heart Stage (mm:ss) Rate BP Comment (bpm) Stage 1 3:00 115 160/70 Stage 2 3:00 129 162/74 Stage 3 0:18 133 / FAC: Average, Ro Treadmill Sore: 6 (Low Risk) RecoveryR 6:00 88 124/64 Stress Duration: 6:18 mm:ss * Recovery Time: 6:00 mm:ss Maximum Stress HR: 133 bpm * METS: 7 Mitral Valve There is trace mitral regurgitation. MMode/2D Measurements & Calculations asc Aorta Diam: 3.1 cm Asc Ao diam index BSA (cm/m2): 1.7 Asc Ao diam index Ht(cm/m): 1.8 Report approved by: Sridhar Tolentino MD on 12/09/2024 09:05 AM CBC with differential Status: None Narrative The following orders were created for panel order CBC with differential. Procedure Abnormality Status --------- ------ CBC with platelets and ...[[id number]] Final result Please view results for these tests on the individual orders. Italia Carrillo PA-C Cosigned by Jaspreet Funk MD at 12/09/2024 12:52 PM CDT Associated attestation - Jaspreet Funk MD - 12/09/2024 12:52 PM CDT Physician Attestation I have reviewed and discussed with the advanced practice provider their discharge plan for Taurus Matthews. I did not participate in a shared visit by interviewing or examining the patient and this should be billed as an advanced practice provider only discharge. Jaspreet Funk MD Date of Service (when I saw the patient): I did not personally see this patient today. documented in this encounter Medications at Time of Discharge amLODIPine (NORVASC) 5 MG tablet Take 5 mg by mouth daily. 08/08/2024 calcium carbonate-vitamin D (CALTRATE) 600-10 MG-MCG per tablet Take 1 tablet by mouth at bedtime. cyanocobalamin (VITAMIN B-12) 1000 MCG tablet Take 1,000 mcg by mouth daily. FLUoxetine (PROZAC) 20 MG capsule Take 20 mg by mouth daily. losartan (COZAAR) 100 MG tablet Take 100 mg by mouth daily. 05/30/2024 Magnesium 400 MG CAPS Take 1 capsule by mouth at bedtime. multivitamin w/minerals (MULTI-VITAMIN) tablet Take 1 tablet by mouth daily. simvastatin (ZOCOR) 20 MG tablet Take 20 mg by mouth at bedtime. 02/15/2016 documented as of this encounter H&P Notes * MarielaSae YulianaJOSEPHINE HOST/HOSTESS HEAD - 12/08/2024 5:56 PM CDT Images from the original note were not included. [facility] History and Physical - Hospitalist Service Date of Admission: 12/08/2024 Assessment & Plan Lorie Matthews is a 79 year old female who has past medical history of hypertension and hyperlipidemia who presents to [facility] on the evening of 12/08/2024 for evaluation of chestpain. She endorses an episode of squeezing chest pain this morning while she was sitting reading which lasted approximately 5 to 10 minutes. She endorses clamminess as well as nausea. Denies any radiation of the pain. She states that she has had several episodes similar to this over the past few months typically lasting 3 to 4 minutes per episode. Pain only occurs at rest. Does not have an exertional component. She currently denies any shortness of breath or chest pain. She recently returned toa visit from [place] on 11/22/2024. No history of blood clots, known cardiac issues, or chronic respiratory issues. Denies any leg swelling, hemoptysis, or difficulty ambulating. She does have a family history of her mother dying of a heart attack at age 67 and other family members having heart issues. Atypical chest pain, rule out ACS: Heart score 5. --Admit to obs. --Telemetry monitoring overnight. --Stress echocardiogram in the morning. -- Check A1c, TSH, FLP. -- As needed nitroglycerin, Dilaudid -- Continue home medications: amlodipine, losartan, simvastatin. Not on beta inez. Chronic medical issues: Hypertension: Continue amlodipine and losartan. Depression: Continue Prozac Hyperlipidemia: Continue simvastatin. Observation Goals: -diagnostic tests and consults completed and resulted, -vital signs normal or atpatient baseline, -tolerating oral intake to maintain hydration, -adequate pain control on oral analgesics, -returns to baseline functional status, -safe disposition plan has been identified, Nurse to notify provider when observation goals have been met and patient is ready for discharge. Diet: Combination Diet Regular Diet; No Caffeine Diet, Low Saturated Fat Na <2400mg Diet DVT Prophylaxis: Ambulate every shift [place]aux Catheter: Not present Lines: None Cardiac Monitoring: ACTIVE order. Indication: Chest pain/ ACS rule out (24 hours) Code Status: No CPR- Pre-arrest intubation OK Disposition Plan Medically Ready for Discharge: Anticipated Tomorrow The patient's care was discussed with the Bedside Nurse, Patient, and EM Team. --- Please note that this document was prepared using verbal site acquisition specialist software. While we strive for accuracy, errors or oversights may occur. We appreciate your understanding and encourage you to contact us if any corrections are needed. Thank you. --- Sae Sierra Ed.D, JOSEPHINE, [facility] Medicine Via Vocera Chief Complaint Chest pain History is obtained from the patient, electronic health record, and emergency department physician History of Present Illness Lorie Matthews is a 79 year old female who has past medical history of hypertension and hyperlipidemia who presents to [facility] on the evening of 12/08/2024 for evaluation of chestpain. She endorses an episode of squeezing chest pain this morning while she was sitting reading which lasted approximately 5 to 10 minutes. She endorses clamminess as well as nausea. Denies any radiation of the pain. She states that she has had several episodes similar to this over the past few months typically lasting 3 to 4 minutes per episode. Pain only occurs at rest. Does not have an exertional component. She currently denies any shortness of breath or chest pain. She recently returned toa visit from [place] on 11/22/2024. No history of blood clots, known cardiac issues, or chronic respiratory issues. Denies any leg swelling, hemoptysis, or difficulty ambulating. She does have a family history of her mother dying of a heart attack at age 67 and other family members having heart issues. ED course: IV, labs, imaging Findings: Labs: CBC: Within normal limits hemoglobin 13, platelet count 3 30K BMP/CMP: Within normal limits ID/Markers: High-sensitivity troponin with delta troponin being normal. Initial troponin 7 repeat 8. Misc: N/A. Imaging: CXR shows no acute airspace disease. EKG: Twelve-lead EKG obtained demonstrates a sinus rhythm with a first-degree AV block. Left axis deviation. Treatments: N/A. Calculated heart score of 5. Being admitted for further monitoring and cardiac restratification. Past Medical History Past Medical History: Diagnosis Date Depressive disorder HLD (hyperlipidemia) Hypertension Past Surgical History Past Surgical History: Procedure Laterality Date HYSTERECTOMY ORTHOPEDIC SURGERY TUBAL LIGATION Prior to Admission Medications Prior to Admission Medications Prescriptions Last Dose Informant Patient Reported? Taking? FLUoxetine (PROZAC) 20 MG capsule 12/08/2024 Morning Yes Yes Sig: Take 20 mg by mouth daily. Magnesium 400 MG CAPS 12/07/2024 Bedtime Yes Yes Sig: Take 1 capsule by mouth at bedtime. amLODIPine (NORVASC) 5 MG tablet 12/07/2024 Bedtime Yes Yes Sig: Take 5 mg by mouth daily. calcium carbonate-vitamin D (CALTRATE) 600-10 MG-MCG per tablet 12/07/2024 Bedtime Yes Yes Sig: Take 1 tablet by mouth at bedtime. cyanocobalamin (VITAMIN B-12) 1000 MCG tablet 12/08/2024 Morning Yes Yes Sig: Take 1,000 mcg by mouth daily. losartan (COZAAR) 100 MG tablet 12/08/2024 Morning Yes Yes Sig: Take 100 mg by mouth daily. multivitamin w/minerals (MULTI-VITAMIN) tablet 12/08/2024 Morning Yes Yes Sig: Take 1 tablet by mouth daily. simvastatin (ZOCOR) 20 MG tablet 12/07/2024 Bedtime Yes Yes Sig: Take 20 mg by mouth at bedtime. Facility-Administered Medications: None Review of Systems The 10 point Review of Systems is negative other than noted in the HPI or here. Social History I have reviewed this patient's social history and updated it with pertinent information if needed. Social History Tobacco Use Smoking status: Former Types: Cigarettes Smokeless tobacco: Never Substance Use Topics Drug use: Not Currently Family History I have reviewed this patient's family history and updated it with pertinent information if needed. Family History Problem Relation Age of Onset Myocardial Infarction Mother Allergies No Known Allergies Physical Exam Vital Signs: Temp: 98.1 ??F (36.7 ??C) Temp src: Oral BP: (!) 146/72 Pulse: 73 Resp: 16 SpO2: 95 % O2 Device: None (Room air) Weight: 161 lbs 6.03 oz GEN: Alert, oriented x 3, appears comfortable, NAD. NECK: Supple ,no mass or thyromegaly HEENT: Normocephalic/atraumatic, no scleral icterus, no nasal discharge, mouth moist. CV: Regular rate and rhythm, no murmur or JVD. S1 + S2 noted, no S3 or S4. LUNGS: Clear to auscultation bilaterally without rales/rhonchi/wheezing/retractions. Symmetric chest rise on inhalation noted. ABD: Active bowel sounds, soft, non-tender/non-distended. No rebound/guarding/rigidity. EXT: No edema. No cyanosis. No joint synovitis noted. SKIN: Dry to touch, no exanthems noted in the visualized areas. Neurologic: Grossly intact,non focal. Neuropsychiatric: General: normal, calm and normal eye contact Level of consciousness: alert / normal Affect: normal Orientation: oriented to self, place, time and situation Medical Decision Making 75 MINUTES SPENT BY ME on the date of service doing chart review, history, exam, documentation & further activities per the note. Data PAST 24 HR DATA REVIEWED I have personally reviewed the following data over the past 24 hrs: 6.9 \ 13.1 / 331 134 (L) 97 (L) 11.3 / 95 4.7 27 0.81 \ Trop: 8 BNP: N/A TSH: 1.40 T4: N/A A1C: 5.3 Imaging results reviewed over the past 24 hrs: Recent Results (from the past 24 hours) Chest XR, PA & LAT Narrative EXAM: XR CHEST 2 VIEWS LOCATION: [facility] DATE: 12/08/2024 INDICATION: Central chest pain lasted ~ 15min COMPARISON: None. Impression IMPRESSION: No focal airspace opacities, pleural effusion or pneumothorax. The cardiomediastinal silhouettes are normal. EKG: SR with 1 AVB. L axis deviation Cosigned by Jaspreet Funk MD at 12/09/2024 12:52 PM CDT Associated attestation - Jaspreet Funk MD - 12/09/2024 12:52 PM CDT Physician Attestation I have reviewed and discussed with the advanced practice provider their history, physical and plan for Lorie Matthews. I did not participate in a shared visit; this is an advanced practice provider only visit. Jaspreet Funk MD Date of Service (when I saw the patient): I did not personally see this patient today. documented in this encounter ED Notes * Xenia Carson RN - 12/08/2024 8:41 PM CDT [facility] ED Boarding Nurse Handoff Addendum Report: Date/time: 12/08/2024, 8:41 PM Activity Level: independent Fall Risk: Yes: arm band in place, patient and family education, assistive device/personal items within reach, and activity supervised Active Infusions: None Current Meds Due: Per MAR Current care needs: Monitor for chest pain; pending echo Oxygen requirements (liters/min and/or FiO2): RA Respiratory status: Room air Vital signs (within last 30 minutes): Vitals: 12/08/24 1207 12/08/242010 BP: (!) 140/84 (!) 146/72 Pulse: 77 73 Resp: 16 Temp: 97.7 ??F (36.5 ??C) 98.1 ??F (36.7 ??C) TempSrc: Temporal Oral SpO2: 100% 95% Weight: 73.2 kg (161 lb 6 oz) Focused assessment within last 30 minutes: Pt is alert and oriented x4 on room air. VSS. Pt is independent. Cardiac no caffeine diet. Pt does not have any complaint of chest pain. Admitting GÓMEZ informed about pt's code status request. Also inquired GÓMEZ about cardiac monitoring order. Pt was informed about pending ECHO for 12/09. ED Boarding Nurse name: Cami Carty RN RECEIVING UNIT ED HANDOFF REVIEW Above ED Nurse Handoff Report was reviewed: Yes Reviewed by: Xenia Carson RN on December 08, 2024 at 10:12 PM I Venus called the ED to inform them the note was read: Yes * Carlos Manuel Epps RN - 12/08/2024 3:47 PM CDT Bed: IN09 Expected date: 12/08/24 Expected time: 3:28 PM Means of arrival: Comments: dispo * Nathalia Roberson MD - 12/08/2024 1:21 PM CDT Emergency Department Note History of Present Illness Chief Complaint Chest Pain HPI Lorie Matthews is a 79 year old female with history of hypertension and hyperlipidemia who presents to the ED for evaluation of chest pain. Patient reports an episode of squeezing chest pain thismorning while she was sitting reading, lasting approximately 5-10 minutes. Associated clamminess, nausea, and some shallow breathing. Denies any radiating arm or jaw pain. She reports occasional similar episodes of chest pain over the past couple of months, typically lasting 3-4 minutes per episode. The chest pain has only ever come on with rest. She denies current shortness of breath or chest pain. She recently returned from a visit to [facility] on 11/22. No history of blood clots, heart or lung issues. Notes having neuropathy, and some baseline leg pain. Denies leg swelling, hemoptysis, or recent difficulty walking or exercising. Denies onset of chest pain with exercise. She reports her mother dying of a heart attack at age 67, and has other family history of heart issues. Independent Historian None Review of External Notes I reviewed Urgent Care visit just before presentation, when patient was seen for chest pain with diaphoresis and nausea. Past Medical History Medical History and Problem List Hypertension Hyperlipidemia Depression Medications Amlodipine Prozac Losartan Simvastatin Surgical History Hysterectomy Tubal ligation Bunion/ankle repair Physical Exam Patient Vitals for the past 24 hrs: BP Temp Temp src Pulse Resp SpO2 Weight 12/08/24 1207 (!) 140/84 97.7 ??F (36.5 ??C) Temporal 77 16 100 % 73.2 kg (161 lb 6 oz) Physical Exam General: Overall stable and nontoxic appearing HEENT: Conjunctivae clear, no scleral icterus, mucous membranes moist Neuro: Alert, moving all extremities equally with intention CV: Regular rate and rhythm, radial and DP pulses equal Respiratory: No signs of respiratory distress, lungs clear to auscultation bilaterally Abdomen: Soft, without rigidity or rebound throughout MSK: No lower extremity swelling or tenderness Diagnostics Lab Results Labs Ordered and Resulted from Time of ED Arrival to Time of ED Departure BASIC METABOLIC PANEL - Abnormal Result Value Sodium 134 (*) Potassium 4.7 Chloride 97 (*) Carbon Dioxide (CO2) 27 Anion Gap 10 Urea Nitrogen 11.3 Creatinine 0.81 GFR Estimate 74 Calcium 9.8 Glucose 95 TROPONIN T, HIGH SENSITIVITY - Normal Troponin T, High Sensitivity 7 TROPONIN T, HIGH SENSITIVITY - Normal Troponin T, High Sensitivity 8 CBC WITH PLATELETS AND DIFFERENTIAL WBC Count 6.9 RBC Count 4.26 Hemoglobin 13.1 Hematocrit 38.5 MCV 90 MCH 30.8 MCHC 34.0 RDW 12.7 Platelet Count 331 % Neutrophils 68 % Lymphocytes 21 % Monocytes 8 % Eosinophils 3 % Basophils 1 % Immature Granulocytes 0 NRBCs per 100 WBC 0 Absolute Neutrophils 4.7 Absolute Lymphocytes 1.4 Absolute Monocytes 0.6 Absolute Eosinophils 0.2 Absolute Basophils 0.1 Absolute Immature Granulocytes 0.0 Absolute NRBCs 0.0 Imaging Chest XR, PA & LAT Final Result IMPRESSION: No focal airspace opacities, pleural effusion or pneumothorax. The cardiomediastinal silhouettes are normal. EKG See ED course Independent Interpretation CXR: No pneumothorax, infiltrate, pleural effusion, or pulmonary edema. ED Course Medications Administered Medications - No data to display Procedures Procedures Discussion of Management Admitting hospitalist, Sae Sierra APRN HOST/HOSTESS HEAD ED Course ED Course as of 12/08/24 1735 FriDec 08, 2024 1322 KG 1218 Sinus rhythm with a first-degree AV block, left send 1.[address] elevation only in V2 Rate 75 TX 224 QRS 106 QTc 435 1710 I rechecked and updated the patient. Additional Documentation None Medical Decision Making / Diagnosis [facility] Diagnoses: None MIPS None MDM Lorie Matthews is a 79 year old female with a hx of HLD, HTN, who presents to the ED with chiefcomplaint of episode of chest pain that occurred at rest associated with diaphoresis and nausea. She has had intermittent episodes like this over the past few months. There is a family history of cardiac disease, mother of a heart attack in her 60s. Reassuringly here her troponin is stable andshe is chest pain-free. Chest x-ray with without any evidence of pneumothorax. No clinical evidenceof fluid overload to suggest heart failure. No cough fever to suggest pneumonia. She is moderate risk with a heart score of 5 therefore I think that it is reasonable to expedite stress testing. Discussed with hospitalist Sae Sierra NP who is kindly accepted for admission. Disposition The patient was admitted to the hospital. Diagnosis ICD-10-CM 1. Chest pain with moderate risk for cardiac etiology R07.9 Discharge Medications New Prescriptions No medications on file Scribe Disclosure: Lucero Levin, am serving as a scribe at 2:28 PM on 12/08/2024 to document services personally performed by Nathalia Roberson MD based on my observations and the provider's statements to me. Nathalia Roberson MD 12/09/24 1524 * Kamini Rodriguez RN - 12/08/2024 12:08 PM CDT episode of 15 minutes of chest pain that started this morning. Pain resolved without intervention. After the pain, the patient felt lightheaded and clammy. These symptoms have also resolved. Denies hx of heart or lung disease. documented in this encounter Miscellaneous Notes * Plan of Care - Raissa Blackmon RN - 12/09/2024 11:18 AM CDT Patient's After Visit Summary was reviewed with patient. Patient verbalized understanding of After Visit Summary, recommended follow up and was given an opportunity to ask questions. Discharge medications sent home with patient/family: No, Not applicable Discharged with daughter * Plan of Care - Raissa Blackmon RN - 12/09/2024 8:00 AM CDT Vitals are Temp: 98.8 ??F (37.1 ??C) Temp src: Oral BP: 139/75 Pulse: 79 Resp: 16 SpO2: 95 %. Alert and oriented x4. Up ad che. Denies chest pain, N/V and SOB. PIV SL. Cardiac diet. Tel SR 71. PRIMARY DIAGNOSIS: CHEST PAIN OUTPATIENT/OBSERVATION GOALS TO BE MET BEFORE DISCHARGE: 1. Ruled out acute coronary syndrome (negative or stable Troponin): Yes 2. Pain Status: Pain free. 3. Appropriate provocative testing performed: Yes - Stress Test Procedure: Echo - Interpretation of cardiac rhythm per telephone technician: SR 71 4. Cleared by Consultants (if applicable):No 5. Return to near baseline physical activity: Yes Vice President Medical Affairs Nurse Safe discharge environment identified: Yes Barriers to discharge: Yes Entered by: Raissa Blackmon RN 12/09/2024 Please review provider order for any additional goals. Nurse to notify provider when observation goals have been met and patient is ready for discharge. Goal Outcome Evaluation: Plan of Care Reviewed With: patient Overall Patient Progress: improvingOverall Patient Progress: improving Outcome Evaluation: AOx4, Up ad che, cardiac diet, Echos stress test completed. Tele SR 71, Denies chest pain or SOB * Plan of Care - Xenia Carson RN - 12/09/2024 4:00 AM CDT PRIMARY DIAGNOSIS: CHEST PAIN OUTPATIENT/OBSERVATION GOALS TO BE MET BEFORE DISCHARGE: 1. Ruled out acute coronary syndrome (negative or stable Troponin): Yes 2. Pain Status: Pain free. 3. Appropriate provocative testing performed: N/A - Stress Test Procedure: Stress Echo 12/09 - Interpretation of cardiac rhythm per telephone technician: 4. Cleared by Consultants (if applicable):No 5. Return to near baseline physical activity: Yes Vice President Medical Affairs Nurse Safe discharge environment identified: Yes Barriers to discharge: Yes BP 136/72 (BP Location: Left arm) Pulse 62 Temp 97.7 ??F (36.5 ??C) (Oral) Resp 16 Ht 1.702m (5' 7) Wt 73.9 kg (163 lb) LMP (LMP Unknown) SpO2 96% BMI 25.53 kg/m?? Patient is Alert and Oriented x4. They are independent with no assistive devices . Pt is a Cardiac and No caffeine diet. They are denying pain. Patient is Saline locked. Tele. Stress Echo in the am. Denies chest pain at the moment. Please review provider order for any additional goals. Nurse to notify provider when observation goals have been met and patient is ready for discharge. Goal Outcome Evaluation: Plan of Care Reviewed With: patient Overall Patient Progress: improvingOverall Patient Progress: improving Outcome Evaluation: A&Ox4, Ind, Cardiac diet, Stress Echo in the Am. NPO 4 hrs before. Tele overnight. Denies chest pain * Plan of Care - Xenia Carson RN - 12/09/2024 12:19 AM CDT PRIMARY DIAGNOSIS: CHEST PAIN OUTPATIENT/OBSERVATION GOALS TO BE MET BEFORE DISCHARGE: 1. Ruled out acute coronary syndrome (negative or stable Troponin): Yes 2. Pain Status: Pain free. 3. Appropriate provocative testing performed: N/A - Stress Test Procedure: Stress Echo 12/09 - Interpretation of cardiac rhythm per telephone technician: 4. Cleared by Consultants (if applicable):No 5. Return to near baseline physical activity: Yes Vice [employer] Medical Affairs Nurse Safe discharge environment identified: Yes Barriers to discharge: Yes Vitals are Temp: 97.9 ??F (36.6 ??C) Temp src: Oral BP: (!) 151/78 Pulse: 72 Resp: 18 SpO2: 96 %. Patient is Alert and Oriented x4. They are independent with no assistive devices . Pt is a Cardiac and No caffeine diet. They are denying pain. Patient is Saline locked. Tele. Stress Echo in the am. Denies chest pain at the moment. Please review provider order for any additional goals. Nurse to notify provider when observation goals have been met and patient is ready for discharge. Goal Outcome Evaluation: Plan of Care Reviewed With: patient Overall Patient Progress: improvingOverall Patient Progress: improving Outcome Evaluation: A&Ox4, Ind, Cardiac diet, Stress Echo in the Am. NPO 4 hrs before. Tele overnight. Denies chest pain * Plan of Care - Xenia Carson RN - 12/08/2024 10:37 PM CDT ROOM # 202-2 Living Situation Ind Facility name: [employer] pet [employer] salesperson: [place] Activity level at baseline: ind Activity level on admit: iind Who will be transporting you at discharge: TBD Patient registered to observation; given Patient Bill of Rights; given the opportunity to ask questions about observation status and their plan of care. Patient has been oriented to the observation room, bathroom and call light is in place. Discussed discharge goals and expectations with patient/family. * Pharmacy-Admission Medication History - Fred Lawrence - 12/08/2024 7:13 PM CDT Econometrics Professor Admission Medication History Admission medication history is complete. The information provided in this note is only as accurateas the sources available at the time of the update. Information Source(s): Patient and CareEverywhere/SureScripts via in-person Pertinent Information: None Changes made to [facility] medication list: Added: Ca+Vit D, multivitamin, Mg, and B12 Deleted: None Changed: None Allergies reviewed with patient and updates made in EHR: yes Medication History Completed By: Fred Lawrence 12/08/2024 7:13 PM [facility] Med List Medication Sig Last Dose/Taking amLODIPine (NORVASC) 5 MG tablet Take 5 mg by mouth daily. 12/07/2024 Bedtime calcium carbonate-vitamin D (CALTRATE) 600-10 MG-MCG per tablet Take 1 tablet by mouth at bedtime. 12/07/2024 Bedtime cyanocobalamin (VITAMIN B-12) 1000 MCG tablet Take 1,000 mcg by mouth daily. 12/08/2024 Morning FLUoxetine (PROZAC) 20 MG capsule Take 20 mg by mouth daily. 12/08/2024 Morning losartan (COZAAR) 100 MG tablet Take 1 tablet by mouth daily. 12/08/2024 Morning Magnesium 400 MG CAPS Take 1 capsule by mouth at bedtime. 12/07/2024 Bedtime multivitamin w/minerals (MULTI-VITAMIN) tablet Take 1 tablet by mouth daily. 12/08/2024 Morning simvastatin (ZOCOR) 20 MG tablet Take 20 mg by mouth at bedtime. 12/07/2024 Bedtime Cosigned by Won Rogel RPH at 12/08/2024 8:35 PM CDT Associated attestation - Won Rogel RPH - 12/08/2024 8:35 PM CDT attested documented in this encounter Plan of Treatment Not on file documented as of this encounter Procedures Procedure Name Priority Date/Time Associated Diagnosis Comments ECHO EXERCISE STRESS TEST WITH CONTRAST Routine 12/09/2024 7:48 AM CDT LIPID REFLEX TO DIRECT LDL PANEL Routine 12/09/2024 5:37 AM CDT CBC WITH PLATELETS Routine 12/09/2024 5: 37 AM CDT TROPONIN T, HIGH SENSITIVITY Routine 12/09/2024 5:36 AM CDT BASIC METABOLIC PANEL Routine 12/09/2024 5:36 AM CDT EKG 12-LEAD, TRACING ONLY STAT 12/08/2024 3:41 PM CDT TROPONIN T, HIGH SENSITIVITY STAT 12/08/2024 2:23 PM CDT TSH WITH FREE T4 REFLEX Add-On 12/08/2024 2:23 PM CDT XR CHEST 2 VIEWS STAT 12/08/2024 2:00 PM CDT EKG 12-LEAD, TRACING ONLY STAT 12/08/2024 12:18 PM CDT EXTRA TUBE STAT 12/08/2024 12:15 PM CDT EXTRA RED TOP TUBE STAT 12/08/2024 12 :15 PM CDT EXTRA BLUE TOP TUBE STAT 12/08/2024 1 2:15 PM CDT CBC WITH PLATELETS AND DIFFERENTIAL STAT 12/08/2024 12:15 PM CDT TROPONIN T, HIGH SENSITIVITY STAT 12/08/2024 12:15 PM CDT CBC WITH PLATELETS & DIFFERENTIAL STAT 12/08/2024 12:15 PM CDT HEMOGLOBIN A1C Add-On 12/08/2024 12:15 PM CDT BASIC METABOLIC PANEL STAT 12/08/2024 12:15 PM CDT documented in this encounter Results * ECHO EXERCISE STRESS TEST WITH CONTRAST (12/09/2024 7:48 AM CDT) Anatomical Region Laterality Modality Echocardiography 12/09/2024 7:20 AM CDT Narrative 12/09/2024 9:05 AM [facility] [id number]^MARIELA^SAE^YULIANA [facility] Echocardiography Laboratory [address] [place] [address] Name: LORIE MATTHEWS : 1945 Study Date: 12/09/2024 07:20 AM Age: 79 yrs Gender: Female Patient Location: [facility] Reason For Study: Chest Pain History: Chest Pain Ordering Physician: SAE SIERRA Referring Physician: None Performed By: Deb Fraga BSA: 1.9 m2 Height: 67 in Weight: 163 lb HR: 74 BP: 118/72 mmHg Procedure Stress Echo Treadmill with two dimensional, color and spectral Doppler. Optison contrast given intravenously [[facility] #[id number]]. Interpretation Summary Exercise stress echocardiogram was negative for ischemia or infarction at an exercise capacity of 7 METS and 94% of the target heart rate. There was no chest pain or significant ST changes with exercise. The Ro treadmill score was low risk ( >5 Ro score). Stress The patient exercised 6:18. RPP 62885. There was a normal BP response to exercise. This study was stopped as the patient achieved an adequate exercise effort for a diagnostic study. The patient exhibited no chest pain during exercise. Target Heart Rate was achieved. The Ro treadmill score was low risk ( >5 Ro score). There was no chest pain or significant ST changes with exercise. The visual ejection fraction is 65-70%. Left ventricular cavity size decreases with exercise. Global LV systolic function augments with exercise. Normal resting wall motion and no stress-induced wall motion abnormality. Baseline The patient is in normal sinus rhythm. The visual ejection fraction is estimated at 55-60%. Stress Results Protocol: Servando Maximum Predicted HR: 142 bpm Target HR: 121 bpm % Maximum Predicted HR: 94 % Duration Heart Stage (mm:ss) Rate BP Comment (bpm) Stage 1 3:00 115 160/70 Stage 2 3:00 129 162/74 Stage 3 0:18 133 / FAC: Average, Ro Treadmill Sore: 6 (Low Risk) RecoveryR 6:00 88 124/64 Stress Duration: 6:18 mm:ss * Recovery Time: 6:00 mm:ss Maximum Stress HR: 133 bpm * METS: 7 Mitral Valve There is trace mitral regurgitation. MMode/2D Measurements & Calculations asc Aorta Diam: 3.1 cm Asc Ao diam index BSA (cm/m2): 1.7 Asc Ao diam index Ht(cm/m): 1.8 Report approved by: Sridhar Tolentino MD on 12/09/2024 09:05 AM Procedure Note Sridhar Tolentino MD - 12/09/2024 [id number]^MARIELA^SAE^YULIANA [facility] Echocardiography Laboratory [address] [place] [address] Name: LORIE MATTHEWS : 1945 Study Date: 12/09/2024 07:20 AM Age: 79 yrs Gender: Female Patient Location: [facility] Reason For Study: Chest Pain History: Chest Pain Ordering Physician: SAE SIERRA Referring Physician: None Performed By: Deb Fraga BSA: 1.9 m2 Height: 67 in Weight: 163 lb HR: 74 BP: 118/72 mmHg Procedure Stress Echo Treadmill with two dimensional, color and spectral Doppler. Optison contrast given intravenously [[facility] #[id number]]. Interpretation Summary Exercise stress echocardiogram was negative for ischemia or infarction atan exercise capacity of 7 METS and 94% of the target heart rate. There was no chest pain or significant ST changes with exercise. The Ro treadmill score was low risk ( >5 Ro score). Stress The patient exercised 6:18. RPP 37185. There was a normal BP response to exercise. This study was stopped as the patient achieved an adequate exercise effortfor a diagnostic study. The patient exhibited no chest pain during exercise. Target Heart Rate was achieved. The Ro treadmill score was low risk ( >5 Ro score). There was no chest pain or significant ST changes with exercise. The visual ejection fraction is 65-70%. Left ventricular cavity size decreases with exercise. Global LV systolic function augments with exercise. Normal resting wall motion and no stress-induced wall motionabnormality. Baseline The patient is in normal sinus rhythm. The visual ejection fraction is estimated at 55-60%. Stress Results Protocol: Servadno Maximum Predicted HR: 142 bpm Target HR: 121 bpm % Maximum Predicted HR: 94 % Duration Heart Stage (mm:ss) Rate BP Comment (bpm) Stage 1 3:00 115 160/70 Stage 2 3:00 129 162/74 Stage 3 0:18 133 / FAC: Average, Ro Treadmill Sore: 6(Low Risk) RecoveryR 6:00 88 124/64 Stress Duration: 6:18 mm:ss * Recovery Time: 6:00 mm:ss Maximum Stress HR: 133 bpm * METS: 7 Mitral Valve There is trace mitral regurgitation. MMode/2D Measurements & Calculations asc Aorta Diam: 3.1 cm Asc Ao diam index BSA (cm/m2): 1.7 Asc Ao diam index Ht(cm/m): 1.8 Report approved by: Sridhar Tolentino MD on 12/09/2024 09:05 AM Sae Sierra CATERING STAFF MEMBER HOST/HOSTESS HEAD CV ECHO ORDERABLES Ed ited Result - Final * (ABNORMAL) Lipid panel reflex to direct LDL (12/09/2024 5:37 AM CDT) Cholesterol 184 <200 mg/dL 12/09/2024 8:55 AM CDT [facility] Triglycerides 68 <150 mg/dL 12/09/2024 8:55 AM CDT [facility] Direct Measure HDL 64 >=50 mg/dL 12/09/2024 8:55 AM CDT [facility] LDL Cholesterol Calculated 106(H) <100 mg/dL 12/09/2024 8:55 AM CDT [facility] Non HDL Cholesterol 120 <130 mg/dL 12/09/2024 8:55 AM CDT [facility] Patient Fasting > 8hrs? Unknown 12/09/2024 8:55 AM CDT [facility] Blood STRUCTURE OF LEFT UPPER LIMB / Unknown Venipuncture / Unknown 12/09/2024 5:37 AM CDT 12/09/2024 5:50 AM CDT Narrative [facility] - 12/09/2024 8:55 AM CDT Cholesterol Desirable: < 200 mg/dL Borderline High: 200 - 239 mg/dL High: >= 240 mg/dL Triglycerides Normal: < 150 mg/dL Borderline High: 150 - 199 mg/dL High: 200-499 mg/dL Very High: >= 500 mg/dL Direct Measure HDL Female: >= 50 mg/dL Male: >= 40 mg/dL LDL Cholesterol Desirable: < 100 mg/dL Above Desirable: 100 - 129 mg/dL Borderline High: 130 - 159 mg/dL High: 160 - 189 mg/dL Very High: >= 190 mg/dL Non HDL Cholesterol Desirable: < 130 mg/dL Above Desirable: 130 - 159 mg/dL Borderline High: 160 - 189 mg/dL High: 190 - 219 mg/dL Very High: >= 220 mg/dL us Sae Sierra APRN HOST/HOSTESS HEAD LAB - BLOOD ORDERABLE S Final Result [facility] [place] [facility] [address] [place] [address], [place] [facility] [address] Lab (1st floor, no room number) [place] [address], [facility] * CBC with platelets (12/09/2024 5:37 AM CDT) WBC Count 5.2 4.0 - 11.0 10e3/uL 12/09/2024 5:54 AM CDT [facility] RBC Count 3.95 3.80 - 5.20 10e6/uL 12/09/2024 5:54 AM CDT [facility] Hemoglobin 12.0 11.7 - 15.7 g/dL 12/09/2024 5:54 AM CDT [facility] Hematocrit 35.8 35.0 - 47.0 % 12/09/2024 5:54 AM CDT [facility] MCV 91 78 - 100 fL 12/09/2024 5:54 AM CDT [facility] MCH 30.4 26.5 - 33.0 pg 12/09/2024 5:54 AM CDT [facility] MCHC 33.5 31.5 - 36.5 g/dL 12/09/2024 5:54 AM CDT [facility] RDW 12.7 10.0 - 15.0 % 12/09/2024 5:54 AM CDT [facility] Platelet Count 290 150 - 450 10e3/uL 12/09/2024 5:54 AM CDT [facility] Blood STRUCTURE OF LEFT UPPER LIMB / Unknown Venipuncture / Unknown 12/09/2024 5:37 AM CDT 12/09/2024 5:50 AM CDT us Sae Sierra APRN HOST/HOSTESS HEAD LAB - BLOOD ORDERABLE S Final Result LABORATORY [facility] Acute Care Lab [address] Lab (1st floor, no room number) [place] [address], [facility] * Troponin T, High Sensitivity (12/09/2024 5:36 AM CDT) Troponin T, High Sensitivity 7 <=14 ng/L 12/09/2024 6:13 AM CDT [facility] Comment: Either a High Sensitivity Troponin T baseline (0 hours) value = 100 ng/L, or an increase in High Sensitivity Troponin T = 7 ng/L at 2 hours compared to 0 hours (2-0 hours), suggests myocardial injury, and urgent clinical attention is required. If the 2-0 hours increase is <7 ng/L, a High Sensitivity Troponin T result above gender-specific reference ranges warrants further evaluation. Recommendations for further evaluation include correlation with clinical decision-making tool (e.g., HEART), a 3rd High Sensitivity Troponin T test 2 hours after the 2nd (a 20% change from baseline would represent concern), admission for observation, close PCC/cardiology follow-up, or urgent outpatient provocative testing. Blood STRUCTURE OF LEFT UPPER LIMB / Unknown Venipuncture / Unknown 12/09/2024 5:36 AM CDT 12/09/2024 5:50 AM CDT us Sae Sierra APRN HOST/HOSTESS HEAD LAB - BLOOD ORDERABLE S Final Result LABORATORY [facility] Care Lab [address] Lab (1st floor, no room number) [place] [address], [facility] * Basic metabolic panel (12/09/2024 5:36 AM CDT) Sodium 137 135 - 145 mmol/L 12/09/2024 6:31 AM [facility]T LABORATORY Potassium 4.4 3.4 - 5.3 mmol/L 12/09/2024 6:31 AM CDT LABORATORY Chloride 103 98 - 107 mmol/L 12/09/2024 6:31 AM CDT LABORATORY Carbon Dioxide (CO2) 26 22 - 29 mmol/L 12/09/2024 6:31 AM CDT LABORATORY Anion Gap 8 7 - 15 mmol/L 12/09/2024 6:31 AM CDT LABORATORY Urea Nitrogen 12.6 8.0 - 23.0 mg/dL 12/09/2024 6:31 AM CDT LABORATORY Creatinine 0.68 0.51 - 0.95 mg/dL 12/09/2024 6:31 AM CDT LABORATORY GFR Estimate 89 >60 mL/min/1.7 3m2 12/09/2024 6:31 AM CDT LABORATORY Comment:eGFR calculated usin g 2020 CKD-EPI equation. Calcium 9.0 8.8 - 10.4 mg/dL 12/09/2024 6:31 AM CDT [facility] LABORATORY Glucose 97 70 - 99 mg/dL 12/09/2024 6:31 AM CDT [facility] LABORATORY Blood STRUCTURE OF LEFT UPPER LIMB / Unknown Venipuncture / Unknown 12/09/2024 5:36 AM CDT 12/09/2024 5:50 AM CDT Sae Sierra APRN HOST/HOSTESS HEAD LAB - BLOOD ORDERABLE S Final Result [facility] LABORATORY [facility] [address] Lab (1st floor, no room number) [place] [address] [place] * EKG 12-lead, tracing only (12/08/2024 3:41 PM CDT) Systolic Blood Pressure mmHg RADIOLOGY RESULTS Diastolic Blood Pressure mmHg RADIOLOGY RESULTS Ventricular Rate 70 BPM RAD IOLOGY RESULTS Atrial Rate 70 BPM RADIOLOG Y RESULTS TX Interval 224 ms RADIOLOG Y RESULTS QRS Duration 106 ms RADIOLO GY RESULTS QT 406 ms RADIOLOGY RESULTS QTc 438 ms RADIOLOGY RESULTS P [place] 65 degrees RADIOLOGY RESULTS R AXIS -44 degrees RADIOLOGY RESULTS T [place] 48 degrees RADIOLOGY RESULTS Interpretation ECG Sinus rhythm with 1st degree A-V block Left axis deviation Minimal voltage criteria for LVH, may be normal variant ( [place] product ) Abnormal ECG When compared with ECG of 08-Dec-2024 12:18, Premature atrial complexes are no longer Present Unconfirmed report - interpretation of this ECG is computer generated - see medical record for final interpretation Confirmed by - EMERGENCY ROOM, PHYSICIAN ([id number]), editor publications Sylvester Hartman ([id number]) on 12/08/2024 3:48:33 PM RADIOLOGY RESULTS 12/08/2024 3:41 PM CDT 12/08/2024 3:48 PM CDT us Nathalia Bates MD ECG ORDERABLES Edited Resul t - Final RADIOLOGY RESULTS * TSH with free T4 reflex (12/08/2024 2:23 PM CDT) TSH 1.40 0.30 - 4.20 uIU/mL 12/08/2024 8:30 PM CDT LABORATORY Blood STRUCTURE OF LEFT UPPER LIMB / Unknown Venipuncture / Unknown 12/08/2024 2:23 PM CDT 12/08/2024 2:35 PM CDT us Sae Sierra APRN, CNP LAB - BLOOD ORDERABLE S Final Result Performing Organization Address City/[facility]/ZIP Co de Phone Number [facility] [address] Lab (1st floor, no room number) [place] [address] [place] * Troponin T, High Sensitivity (12/08/2024 2:23 PM CDT) [facility] Troponin T, High Sensitivity 8 <=14 ng/L 12/08/2024 3:02 PM CDT LABORATORY Comment: Either a High Sensitivity Troponin T baseline (0 hours) value = 100 ng/L, or an increase in High Sensitivity Troponin T = 7 ng/L at 2 hours compared to 0 hours (2-0 hours), suggests myocardial injury, and urgent clinical attention is required. If the 2-0 hours increase is <7 ng/L, a High Sensitivity Troponin T result above gender-specific reference ranges warrants further evaluation. Recommendations for further evaluation include correlation with clinical decision-making tool (e.g., HEART), a 3rd High Sensitivity Troponin T test 2 hours after the 2nd (a 20% change from baseline would represent concern), admission for observation, close PCC/cardiology follow-up, or urgent outpatient provocative testing. Blood STRUCTURE OF LEFT UPPER LIMB / Unknown Venipuncture / Unknown 12/08/2024 2:23 PM CDT 12/08/2024 2:35 PM CDT us Nathalia Btaes MD LAB - BLOOD ORDERABLES Final Result Performing Organization Address City/[facility]/ZIP Co de Phone Number [facility] [address] Lab (1st floor, no room number) [place] [address], [facility] * Chest XR, PA & LAT (12/08/2024 2:00 PM CDT) Anatomical Region Laterality Modality Chest Computed Radiogr aphy 12/08/2024 2:00 PM CDT Impressions 12/08/2024 2:04 PM CDT IMPRESSION: No focal airspace opacities, pleural effusion or pneumothorax. The cardiomediastinal silhouettes are normal. Narrative 12/08/2024 2:04 PM CDT EXAM: XR CHEST 2 VIEWS LOCATION: [facility] DATE: 12/08/2024 INDICATION: Central chest pain lasted ~ 15min COMPARISON: None. Procedure Note Ainsley Gr MD - 12/08/2024 EXAM: XR CHEST 2 VIEWS LOCATION: [facility] DATE: 12/08/2024 INDICATION: Central chest pain lasted ~ 15min COMPARISON: None. IMPRESSION: No focal airspace opacities, pleural effusion or pneumothorax.The cardiomediastinal silhouettes are normal. Nathalia Bates MD IMG DIAGNOSTIC IMAGING ORDER JUSTIN Final Result * EKG 12-lead, tracing only (12/08/2024 12:18 PM CDT) Systolic Blood Pressure mmHg RADIOLOGY RESULTS Diastolic Blood Pressure mmHg RADIOLOGY RESULTS Ventricular Rate 75 BPM RAD IOLOGY RESULTS Atrial Rate 75 BPM RADIOLOG Y RESULTS TX Interval 224 ms RADIOLOG Y RESULTS QRS Duration 106 ms RADIOLO GY RESULTS QT 390 ms RADIOLOGY RESULTS QTc 435 ms RADIOLOGY RESULTS P [place] 62 degrees RADIOLOGY RESULTS R AXIS -44 degrees RADIOLOGY RESULTS T [place] 36 degrees RADIOLOGY RESULTS Interpretation ECG Sinus rhythm with 1st degree A-V block with Premature atrial complexes Left axis deviation Moderate voltage criteria for LVH, may be normal variant ( R in aVL , [place] product ) Abnormal ECG No previous ECGs available Unconfirmed report - interpretation of this ECG is computer generated - see medical record for final interpretation Confirmed by - EMERGENCY ROOM, PHYSICIAN ([id number]), editor publications Sylvester Hartman ([id number]) on 12/08/2024 12:38:10 PM RADIOLOGY RESULTS 12/08/2024 12:1 8 PM CDT 12/08/2024 12:38 PM CDT Nathalia Bates MD ECG ORDERABLES Edited Resul t - Final RADIOLOGY RESULTS * Hemoglobin A1c (12/08/2024 12:15 PM CDT) Estimated Average Glucose 105 <117 mg/dL 12/08/2024 9:10 PM CDT [facility] LABORATORY Hemoglobin A1C 5.3 <5.7 % 12/08/2024 9:10 PM CDT [facility] LABORATORY Comment: Normal <5.7% Prediabetes 5.7-6.4% Diabetes 6.5% or higher Note: Adopted from ADA consensus guidelines. Blood STRUCTURE OF LEFT UPPER LIMB / Unknown Venipuncture / Unknown 12/08/2024 12:15 PM CDT 12/08/2024 12:23 PM CDT us Sae Sierra APRN, CNP LAB - BLOOD ORDERABLE S Final Result Performing Organization Address City/[facility]/ZIP Co de Phone Number [facility] [address] Lab (1st floor, no room number) [address] * Extra Red Top Tube (12/08/2024 12:15 PM CDT) Hold Specimen [facility] 12/08/2024 1:32 PM CDT LABORATORY Blood STRUCTURE OF LEFT UPPER LIMB / Unknown Venipuncture / Unknown 12/08/2024 12:15 PM CDT 12/08/2024 12:23 PM CDT us Nathalia Bates MD LAB - BLOOD ORDERABLES Final Result [facility] [address] Lab (1st floor, no room number) [address] [place] [address] * Extra Blue Top Tube (12/08/2024 12:15 PM CDT) Hold Specimen [facility] 12/08/2024 1:32 PM CDT LABORATORY Blood STRUCTURE OF LEFT UPPER LIMB / Unknown Venipuncture / Unknown 12/08/2024 12:15 PM CDT 12/08/2024 12:23 PM CDT us Nathalia Bates MD LAB - BLOOD ORDERABLES Final Result [facility] LABORATORY [facility] [address] Lab (1st floor, no room number) [place] [address], [facility] * CBC with platelets and differential (12/08/2024 12:15 PM CDT) WBC Count 6.9 4.0 - 11.0 10e3/uL 12/08/2024 12:32 PM CDT [facility] LABORATORY RBC Count 4.26 3.80 - 5.20 10e6/uL 12/08/2024 12:32 PM CDT [facility] LABORATORY Hemoglobin 13.1 11.7 - 15.7 g/dL 12/08/2024 12:32 PM CDT [facility] LAB[facility]ATORY Hematocrit 38.5 35.0 - 47.0 % 12/08/2024 12:32 PM CDT [facility] LAB[facility]ATORY MCV 90 78 - 100 fL 12/08/2024 12:32 PM CDT [facility] LAB[facility]ATORY MCH 30.8 26.5 - 33.0 pg 12/08/2024 12:32 PM CDT [facility] LAB[facility]ATORY MCHC 34.0 31.5 - 36.5 g/dL 12/08/2024 12:32 PM CDT [facility] LABORATORY RDW 12.7 10.0 - 15.0 % 12/08/2024 12:32 PM CDT [facility] LAB[facility]AT[facility] Platelet Count 331 150 - 450 10e3/uL 12/08/2024 12:32 PM CDT [facility] LAB[facility] % Neutrophils 68 % 12/08/2024 12:32 PM CDT [facility] % Lymphocytes 21 % 12/08/2024 12:32 PM CDT [facility] % Monocytes 8 % 12/08/2024 12:32 PM CDT [facility] % Eosinophils 3 % 12/08/2024 12:32 PM CDT [facility] % Basophils 1 % 12/08/2024 12:32 PM CDT [facility] LAB[facility] % Immature Granulocytes 0 % 12/08/2024 12:32 PM CDT [facility] LABORATORY NRBCs per 100 WBC 0 <1 /100 025 12:32 PM CDT [facility] LABORATORY Absolute Neutrophils 4.7 1.6 - 8.3 10e3/uL 12/08/2024 12:32 PM CDT [facility] LABORATORY Absolute Lymphocytes 1.4 0.8 - 5.3 10e3/uL 12/08/2024 12:32 PM CDT [facility] LABORATORY Absolute Monocytes 0.6 0.0 - 1.3 10e3/uL 12/08/2024 12:32 PM CDT [facility] LABORATORY Absolute Eosinophils 0.2 0.0 - 0.7 10e3/uL 12/08/2024 12:32 PM CDT [facility] LAB[facility]AT[facility] Absolute Basophils 0.1 0.0 - 0.2 10e3/uL 12/08/2024 12:32 PM CDT [facility] LABORAT[facility] Absolute Immature Granulocytes 0.0 <=0.4 10e3/uL 12/08/2024 12:32 PM CDT [facility] LABORAT[facility] Absolute NRBCs 0.0 10e3/uL 12/08/2024 12:32 PM CDT [facility] LAB[facility]AT[facility] Blood STRUCTURE OF LEFT UPPER LIMB / Unknown Venipuncture / Unknown 12/08/2024 12:15 PM CDT 12/08/2024 12:23 PM CDT us Nathalia Bates MD LAB - BLOOD ORDERABLES Final Result LABORATORY [facility] [address] [facility] Lab (1st floor, no room number) [place] [address], [facility] * Troponin T, High Sensitivity (12/08/2024 12:15 PM CDT) Troponin T, High Sensitivity 7 <=14 ng/L 12/08/2024 12:56 PM CDT [facility] LABORATORY Comment: Either a High Sensitivity Troponin T baseline (0 hours) value = 100 ng/L, or an increase in High Sensitivity Troponin T = 7 ng/L at 2 hours compared to 0 hours (2-0 hours), suggests myocardial injury, and urgent clinical attention is required. If the 2-0 hours increase is <7 ng/L, a High Sensitivity Troponin T result above gender-specific reference ranges warrants further evaluation. Recommendations for further evaluation include correlation with clinical decision-making tool (e.g., HEART), a 3rd High Sensitivity Troponin T test 2 hours after the 2nd (a 20% change from baseline would represent concern), admission for observation, close PCC/cardiology follow-up, or urgent outpatient provocative testing. Blood STRUCTURE OF LEFT UPPER LIMB / Unknown Venipuncture / Unknown 12/08/2024 12:15 PM CDT 12/08/2024 12:22 PM CDT us Nathalia Bates MD LAB - BLOOD ORDERABLES Final Result LABORATORY [facility] [address] [facility] Lab (1st floor, no room number) [place] [address] [place] * (ABNORMAL) Basic metabolic panel (BMP) (12/08/2024 12:15 PM CDT) Sodium 134(L) 135 - 145 mmol/L 12/08/2024 12:56 PM CDT LABORATORY Potassium 4.7 3.4 - 5.3 mmol/L 12/08/2024 12:56 PM CDT LABORATORY Chloride 97(L) 98 - 107 mmol/L 12/08/2024 12:56 PM CDT LABORATORY Carbon Dioxide (CO2) 27 22 - 29 mmol/L 12/08/2024 12:56 PM CDT LABORATORY Anion Gap 10 7 - 15 mmol/L 12/08/2024 12:56 PM CDT LABORATORY Urea Nitrogen 11.3 8.0 - 23.0 mg/dL 12/08/2024 12:56 PM CDT LABORATORY Creatinine 0.81 0.51 - 0.95 mg/dL 12/08/2024 12:56 PM CDT LABORATORY GFR Estimate 74 >60 mL/min/1.7 3m2 12/08/2024 12:56 PM CDT LABORATORY Comment:eGFR calculated usin 2020 CKD-EPI equation. Calcium 9.8 8.8 - 10.4 mg/dL 12/08/2024 12:56 PM CDT LABORATORY Glucose 95 70 - 99 mg/dL 12/08/2024 12:56 PM CDT LABORATORY Blood STRUCTURE OF LEFT UPPER LIMB / Unknown Venipuncture / Unknown 12/08/2024 12:15 PM CDT 12/08/2024 12:22 PM CDT us Nathalia Bates MD LAB - BLOOD ORDERABLES Final Result [facility] [address] Lab (1st floor, no room number) [place] [address] documented in this encounter Visit Diagnoses Diagnosis Chest pain with moderate risk for cardiac etiology Chest pain with moderate risk for cardiac etiology Chest pain Chest pain, unspecified documented in this encounter Administered Medications Inactive Administered Medications - up to 3 most recent administrations Medication Order MAR Action Action Date Dose Rate Site acetaminophen (TYLENOL) Suppository 650 mg 650 mg, Rectal, EVERY 4 HOURS PRN, mild pain, other, and adjunct with moderate or severe pain or per patient request, Starting on Fri12/08/24 at 1851, Alternate with ibuprofen if ordered. Maximum acetaminophen dose from all sources = 75 mg/kg/day not to exceed 4 grams/day. acetaminophen (TYLENOL) tablet 650 mg 650 mg, Oral, EVERY 4 HOURS PRN, mild pain, other, and adjunct with moderate or severe pain or per patient request, Starting on Fri12/08/24 at 1851, Alternate with ibuprofen if ordered. Maximum acetaminophen dose from all sources = 75 mg/kg/day not to exceed 4 grams/day. amLODIPine (NORVASC) tablet 5 mg 5 mg, Oral, DAILY, First dose on Fri12/09/24 at 0800 $Given 12/09/2024 8:19 AM CDT 5 mg FLUoxetine (PROzac) capsule 20 mg 20 mg, Oral, DAILY, First dose on Fri12/09/24 at 0800 $Given 12/09/2024 8:19 AM CDT 20 mg losartan (COZAAR) tablet 100 mg 100 mg, Oral, DAILY, First dose on Fri12/09/24 at 0800 $Given 12/09/2024 8:19 AM CDT 100 mg nitroGLYcerin (NITROSTAT) sublingual tablet 0.4 mg 0.4 mg, Sublingual, EVERY 5 MIN PRN, chest pain, Starting on Fri12/08/24 at 2201 ondansetron (ZOFRAN ODT) ODT tab 4 mg 4 mg, Oral, EVERY 6 HOURS PRN, nausea/vomiting - 1st line, Starting on Fri12/08/24 at 1851, This is Step 1 of nausea and vomiting management. If nausea not resolved in 15 minutes, go to Step 2 prochlorperazine (COMPAZINE). With dry hands, peel back foil backing and gently remove tablet. Do not push oral disintegrating tablet through foil backing. Administer immediately on tongue and oral disintegrating tablet dissolves in seconds, then swallow with saliva. Liquid not required. ondansetron (ZOFRAN) injection 4 mg 4 mg, Intravenous, EVERY 6 HOURS PRN, nausea/vomiting - 1st line, Administer over 2-5 Minutes, Starting on Fri12/08/24 at 185, Give IF patient unable to tolerate oral medication. This is Step 1 of nausea and vomiting management. If nausea not resolved in 15 minutes, go to Step 2 prochlorperazine (COMPAZINE). perflutren diluted 1mL to 2mL with saline (OPTISON) diluted injection 4 mL 4 mL, Intravenous, ONCE, On Odilia 12/09/24 at 0800, For 1 dose, [facility] [id number] $Given 12/09/2024 7:36 AM CDT 4 mLs prochlorperazine (COMPAZINE) injection 5 mg 5 mg, Intravenous, EVERY 6 HOURS PRN, nausea/vomiting - 2nd line, Administer over 1-2 Minutes, Starting on Fri12/08/24 at 185, Give IF patient unable to tolerate oral medication. This is Step 2 of nausea and vomiting management. Give if nausea not resolved 15 minutes after giving ondansetron (ZOFRAN). If nausea not resolved in 15-30 minutes, Notify provider. prochlorperazine (COMPAZINE) tablet 5 mg 5 mg, Oral, EVERY 6 HOURS PRN, nausea/vomiting - 2nd line, Starting on Fri12/08/24 at 1851, This is Step 2 of nausea and vomiting management. Give if nausea not resolved 15 minutes after giving ondansetron (ZOFRAN). If nausea not resolved in 15-30 minutes, Notify provider. simvastatin (ZOCOR) tablet 20 mg 20 mg, Oral, AT BEDTIME, First dose on Fri12/08/24 at 2200 $Given 12/08/2024 10:54 PM CDT 20 mg sodium chloride (PF) 0.9% PF flush 10 mL 10 mL, Intravenous, ONCE, On Fri12/09/24 at 0800, For 1 dose $Given 12/09/2024 7:36 AM CDT 10 mLs documented in this encounter Active and Recently Administered Medications Times are shown in CDT. Scheduled Medication Order 12/07/2024 12/08/2024 12/09/2024 amLODIPine (NORVASC) tablet 5 mg 5 mg, Oral, DAILY, First dose on Fri12/09/24 at 0800 0819 ($Given - Provi juan: Raissa Blackmon RN) FLUoxetine (PROzac) capsule 20 mg 20 mg, Oral, DAILY, First dose on Fri12/09/24 at 0800 0819 ($Given - Provi juan: Raissa Blackmon RN) losartan (COZAAR) tablet 100 mg 100 mg, Oral, DAILY, First dose on Fri12/09/24 at 0800 0819 ($Given - Provi juan: Raissa Blackmon RN) perflutren diluted 1mL to 2mL with saline (OPTISON) diluted injection 4 mL (COMPLETED) 4 mL, Intravenous, ONCE, On Fri12/09/24 at 0800, For 1 dose, [facility] [id number] ($Given - Provi juan: Deb Fraga) simvastatin (ZOCOR) tablet 20 mg 20 mg, Oral, AT BEDTIME, First dose on Fri12/08/24 at 2200 2254 ($Given - Provider: Xenia Carson RN) sodium chloride (PF) 0.9% PF flush 10 mL (COMPLETED) 10 mL, Intravenous, ONCE, On Fri12/09/24 at 0800, For 1 dose 0736 ($Given - Provi juan: Deb Fraga) PRN Medication Order 12/07/2024 12/08/2024 12/09/2024 acetaminophen (TYLENOL) Suppository 650 mg(Linked Group 1) 650 mg, Rectal, EVERY 4 HOURS PRN, mild pain, other, and adjunct with moderate or severe pain or per patient request, Starting on Fri12/08/24 at 1851, Alternate with ibuprofen if ordered. Maximum acetaminophen dose from all sources = 75 mg/kg/day not to exceed 4 grams/day. acetaminophen (TYLENOL) tablet 650 mg(Linked Group 1) 650 mg, Oral, EVERY 4 HOURS PRN, mild pain, other, and adjunct with moderate or severe pain or per patient request, Starting on Fri12/08/24 at 185, Alternate with ibuprofen if ordered. Maximum acetaminophen dose from all sources = 75 mg/kg/day not to exceed 4 grams/day. HYDROmorphone (DILAUDID) half-tab 1 mg 1 mg, Oral, EVERY 4 HOURS PRN, moderate pain, IF pain not managed with non-pharmacological and non-opioid interventions, Starting on Fri12/08/24 at 185, May use concomitant with non-opioid analgesics. HYDROmorphone (DILAUDID) injection 0.2 mg 0.2 mg, Intravenous, EVERY 2 HOURS PRN, moderate pain, IF patient cannot take oral opioid OR IF pain not managed with non-pharmacological, non-opioid, or oral opioid interventions if ordered, Starting on Fri12/08/24 at 1851, May use concomitant with non-opioid analgesics. HYDROmorphone (DILAUDID) injection 0.4 mg 0.4 mg, Intravenous, EVERY 2 HOURS PRN, severe pain, IF patient cannot take oral opioid OR IF pain not managed with non-pharmacological, non-opioid, or oral opioid interventions if ordered, Starting on Fri12/08/24 at 1851, May use concomitant with non-opioid analgesics. HYDROmorphone (DILAUDID) tablet 2 mg 2 mg, Oral, EVERY 4 HOURS PRN, severe pain, IF pain not managed with non-pharmacological and non-opioid interventions, Starting on Fri12/08/24 at 1851, May use concomitant with non-opioid analgesics. melatonin tablet 1 mg 1 mg, Oral, AT BEDTIME PRN, sleep, Starting on Fri12/08/24 at 1851, Do not give unless at least 6 hours of uninterrupted sleep is expected. If patient has multiple medications ordered PRN sleep/insomnia, offer melatonin first. nitroGLYcerin (NITROSTAT) sublingual tablet 0.4 mg 0.4 mg, Sublingual, EVERY 5 MIN PRN, chest pain, Starting on Fri12/08/24 at 2201 ondansetron (ZOFRAN ODT) ODT tab 4 mg(Linked Group 2) 4 mg, Oral, EVERY 6 HOURS PRN, nausea/vomiting - 1st line, Starting on Fri12/08/24 at 185, This is Step 1 of nausea and vomiting management. If nausea not resolved in 15 minutes, go to Step 2 prochlorperazine (COMPAZINE). With dry hands, peel back foil backing and gently remove tablet. Do not push oral disintegrating tablet through foil backing. Administer immediately on tongue and oral disintegrating tablet dissolves in seconds, then swallow with saliva. Liquid not required. ondansetron (ZOFRAN) injection 4 mg(Linked Group 2) 4 mg, Intravenous, EVERY 6 HOURS PRN, nausea/vomiting - 1st line, Administer over 2-5 Minutes, Starting on Fri12/08/24 at 185, Give IF patient unable to tolerate oral medication. This is Step 1 of nausea and vomiting management. If nausea not resolved in 15 minutes, go to Step 2 prochlorperazine (COMPAZINE). polyethylene glycol (MIRALAX) Packet 17 g 17 g, Oral, 2 TIMES DAILY PRN, constipation, Starting on Fri12/08/24 at 185, IF more than 1 constipation PRN medication is ordered, administer step-betancur as indicated, moving to the next step ONLY if prior step ineffective. Step 1: senna-docusate (SENOKOT-S; PERICOLACE) OR bisacodyl (DULCOLAX) EC tablet Step 2: polyethylene glycol (MIRALAX/GLYCOLAX) Step 3: bisacodyl (DULCOLAX) suppository Step 4: enema 1 Packet = 17 grams. Mix each gram with at least 1/2 ounce (15 mL) of water - 8 ounces for 17 g dose, 4 ounces for 8.5 g dose, 2 ounces for 4 g dose. Follow with the same volume of water. Hold for loose stools unless being administered as part of a bowel prep regimen or bowel clean out. prochlorperazine (COMPAZINE) injection 5 mg(Linked Group 3) 5 mg, Intravenous, EVERY 6 HOURS PRN, nausea/vomiting - 2nd line, Administer over 1-2 Minutes, Starting on Fri12/08/24 at 185, Give IF patient unable to tolerate oral medication. This is Step 2 of nausea and vomiting management. Give if nausea not resolved 15 minutes after giving ondansetron (ZOFRAN). If nausea not resolved in 15-30 minutes, Notify provider. prochlorperazine (COMPAZINE) tablet 5 mg(Linked Group 3) 5 mg, Oral, EVERY 6 HOURS PRN, nausea/vomiting - 2nd line, Starting on Fri12/08/24 at 1851, This is Step 2 of nausea and vomiting management. Give if nausea not resolved 15 minutes after giving ondansetron (ZOFRAN). If nausea not resolved in 15-30 minutes, Notify provider. Linked Groups Order Group 1: acetaminophen (TYLENOL) tablet 650 mgJump to med 650 mg, Oral, EVERY 4 HOURS PRN, mild pain, other, and adjunct with moderate or severe pain or per patient request, Starting on Fri12/08/24 at 1851, Alternate with ibuprofen if ordered. Maximum acetaminophen dose from all sources = 75 mg/kg/day not to exceed 4 grams/day. Or acetaminophen (TYLENOL) Suppository 650 mgJump to med 650 mg, Rectal, EVERY 4 HOURS PRN, mild pain, other, and adjunct with moderate or severe pain or per patient request, Starting on Fri12/08/24 at 1851, Alternate with ibuprofen if ordered. Maximum acetaminophen dose from all sources = 75 mg/kg/day not to exceed 4 grams/day. Group 2: ondansetron (ZOFRAN ODT) ODT tab 4 mgJump to med 4 mg, Oral, EVERY 6 HOURS PRN, nausea/vomiting - 1st line, Starting on Fri12/08/24 at 1851, This is Step 1 of nausea and vomiting management. If nausea not resolved in 15 minutes, go to Step 2 prochlorperazine (COMPAZINE). With dry hands, peel back foil backing and gently remove tablet. Do not push oral disintegrating tablet through foil backing. Administer immediately on tongue and oral disintegrating tablet dissolves in seconds, then swallow with saliva. Liquid not required. Or ondansetron (ZOFRAN) injection 4 mgJump to med 4 mg, Intravenous, EVERY 6 HOURS PRN, nausea/vomiting - 1st line, Administer over 2-5 Minutes, Starting on Fri12/08/24 at 1851, Give IF patient unable to tolerate oral medication. This is Step 1 of nausea and vomiting management. If nausea not resolved in 15 minutes, go to Step 2 prochlorperazine (COMPAZINE). Group 3: prochlorperazine (COMPAZINE) injection 5 mgJump to med 5 mg, Intravenous, EVERY 6 HOURS PRN, nausea/vomiting - 2nd line, Administer over 1-2 Minutes, Starting on Fri12/08/24 at 1851, Give IF patient unable to tolerate oral medication. This is Step 2 of nausea and vomiting management. Give if nausea not resolved 15 minutes after giving ondansetron (ZOFRAN). If nausea not resolved in 15-30 minutes, Notify provider. Or prochlorperazine (COMPAZINE) tablet 5 mgJump to med 5 mg, Oral, EVERY 6 HOURS PRN, nausea/vomiting - 2nd line, Starting on Fri12/08/24 at 1851, This is Step 2 of nausea and vomiting management. Give if nausea not resolved 15 minutes after giving ondansetron (ZOFRAN). If nausea not resolved in 15-30 minutes, Notify provider. documented in this encounter Care Teams Radio Officer Relationship Specialty Start Date End Date No Ref-Primary, Physician PCP - General 08/15/24 documented as of this encounter
--- NOTE | 2024-12-22 13:00 | CRLHL7_ITS ---
For Patients: As a result of the Century Cures Act, medical imaging exams and procedure reports are released immediately into your electronic medical record. You may view this report before your referring provider. If you have questions, please contact your health care provider. DXA BONE MINERAL DENSITY STUDY Reason for exam: Osteopenia. Current height (in): 67. Weight (lb): 160. Menopause age: 46. Ethnicity: White. 1. Have you had a previous hip or vertebral fracture? Yes. 2. Have you had any fractures during your adult life which did not result from significant trauma (e.g., auto accident)? Yes. 3. Did either of your parents have a hip fracture? No. 4. Do you smoke? No. 5. Have you ever taken Glucocorticoids? No. 6. Do you have rheumatoid arthritis? No. 7. Do you have secondary osteoporosis? No. 8. Do you drink 3 or more alcoholic drinks per day? No. 9. Are you being treated for osteoporosis? No. 10. Have you ever taken any of the following medications: Actonel, Evista, Fosamax, Miacalcin, Reclast, Boniva, Forteo, HRT (i.e. estrogen/hormone therapy), Protelos, Prolia, Vitamin D, Calcium, other ??? please specify. ANSWER: Yes, vitamin D and calcium. 11. Do you have any of the following medical conditions: Anorexia or bulimia, asthma or emphysema, end stage renal disease, hyperparathyroidism, any seizure disorders, cancer, inflammatory bowel diseases, hysterectomy, other ??? please specify. ANSWER: Yes, hysterectomy. 12. What was your maximum height (inches)? 67. 13. Do you perform weight bearing exercise regularly? Yes. 14. Do you regularly consume dairy products? Yes. 15. Do you drink caffeinated beverages? Yes. 16. At what age did your period start? 14. 17. Are you premenopausal? No. 18. How many full-term pregnancies have you had? 1. 19. Have you ever missed your period for more than 6 months in a row (not including or menopause)? No. TECHNIQUE: Bone mineral density study was performed using the [employer]. FINDINGS: The results of the study expressed as bone mineral density (BMD) are as follows: Lumbar spine L1 to L4: BMD: 1.349 g/cm2. T-score: 2.7. Z-score: 5.4. Neck Left: BMD: 0.739 g/cm2. T-score: -1.0. Z-score: 1.3. Total Left: BMD: 0.998 g/cm2. T-score: 0.5. Z-score: 2.5. Radius Left 33%: BMD: 0.594 g/cm2. T-score: -1.7. Z-score: 1.3. IMPRESSION: Osteopenia. *Comparison exams done prior to 11/2019 were performed on different unit, Shut Down. COMPARISON: Compared with scan of 10/05/2020, the bone mineral density has increased by 8.7 percent at the spine and decreased by 1.0 percent at the hip. Juan Latham M.D. Diagnostic Radiologist [employer] [email or web address]/Dictated by: Juan Latham MD @ 12/23/2024 8:52:00 AM (Electronically Signed)
--- OUTSIDE RECORDS SUMMARY | 2024-12-23 00:26 | XMS_ITS | Clinical Summary ---
Author Organization [facility] Address [address] [place] [address]. [place] [address] Care Team Providers Care Credit And Collections Representative Name Role Phone No Ref-Primary, Physician Primary Care Provider Allergies No known active allergies Medications simvastatin (ZOCOR) 20 MG tablet Take 20 mg by mouth at bedtime. 02/15/2016 Active losartan (COZAAR) 100 MG tablet Take 100 mg by mouth daily. 05/30/2024 Active FLUoxetine (PROZAC) 20 MG capsule Take 20 mg by mouth daily. Active amLODIPine (NORVASC) 5 MG tablet Take 5 mg by mouth daily. 08/08/2024 Active multivitamin w/minerals (MULTI-VITAMIN) tablet Take 1 tablet by mouth daily. Active calcium carbonate-vitam in D (CALTRATE) 600-10 MG-MCG per tablet Take 1 tablet by mouth at bedtime. Active Magnesium 400 MG CAPS Take 1 capsule by mouth at bedtime. Active cyanocobalamin (VITAMIN B-12) 1000 MCG tablet Take 1,000 mcg by mouth daily. Active Active Problems Problem Noted Date Diagnosed Date Chest pain with moderate risk for cardiac etiolo gy 12/08/2024 Chest pain 12/08/2024 Encounters Date Type Department Care Team Description 12/08/2024 1:02 PM CDT - 12/09/2024 12:32 PM CDT Hospital Encounter [facility] Observation Dept [address] [place] [address] Nathalia Roberson MD Young, Jean Tsai, MD Lindenbaum, Elan, MD Chest pain with moderate risk for cardiac etiology Discharge Disposition: Home or Self Care 12/08/2024 11:20 AM CDT Office Visit [facility] [address] [place] [address] Sintia Mitchell PA-C Acute chest pain (Primary Dx) 12/08/2024 Travel from Last 3 Months Immunizations Immunization Administration Dates Next Due COVID-19 12+ (Pfizer) 10/16/2023 Flu 65+ (Fluad) 03/22/2024 Influenza Vaccine 65+ (FLUAD) 03/26/2023 Influenza Vaccine 65+ (Fluzone HD) 04/03/2022,,03/21/2020 Pneumo Conj 13-V (2010&after) 03/24/2015 Pneumococcal 23 valent 01/26/2013 RSV (Abrysvo) 06/03/2023 TDAP (Adacel,Boostrix) 05/05/2018,08/27/2007 Zoster recombinant adjuvanted (Shingrix) 019,04/06/2019 Zoster vaccine, live 04/01/2012 Family History Medical History Relation Comments Myocardial Infarction Mother Relation Status Comments Mother Social History Tobacco Use Types Packs/Day Years [...] in an abandoned building, in an overnight group home, or couch-surfing.) Yes 12/09/2024 Are you worried [...] on file 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 Gender Identity Not on file Sexual Orientation Not on file Travel History Travel Start Travel End [place] 11/12/2024 11/22/2024 Last Filed Vital Signs Vital Sign Reading [...] Mass Index 25.53 12/08/2024 10:40 PM CDT Plan of Treatment Health Maintenance Due Date Last Done Comments ADVANCE CARE PLANNING 1945 ANNUAL REVIEW OF HM ORDERS 1945 DEXA 1945 HEPATITIS C SCREENING 02/05/1964 LUNG CANCER SCREENING 02/05/1996 FALL RISK ASSESSMENT 2011 MEDICARE ANNUAL WELLNESS VISIT 2011 PHQ-2 (once per calendar year) 2024 LIPID 12/09/2025 12/09/2024 DIABETES SCREENING 12/10/2027 12/09/2024, 0 12/08/2024, 12/08/2024 DTAP/TDAP/TD VACCINE (3 - Td or Tdap) 05/05/2028 05/05/2018, 08/27/2007 MAMMO SCREENING Discontinued 03/31/2012, 12/29, 12/13/2009, Additional history exists PNEUMOCOCCAL VACCINE 50+ YEARS Completed 03/24/2015, 01/26/2013 ZOSTER VACCINE Completed 06/18/2019, 10/0 01/2019, 04/01/2012 RSV VACCINE Completed 06/03/2023 INFLUENZA VACCINE Completed 03/22/2024, , 04/03/2022, Additional history exists COVID-19 VACCINE Completed 09/27/2024, , 10/16/2023, Additional history exists HPV VACCINE Aged Out No longer eligi ble based on patient's age to complete this topic MENINGITIS VACCINE Aged Out No longer eligible based on patient's age to complete this topic Procedures Procedure Name Priority Date/Time Associated Diagnosis [...] TRACING ONLY STAT 12/08/2024 3:41 PM CDT TSH WITH FREE T4 REFLEX Add-On 12/08/2024 2:23 PM CDT TROPONIN T, HIGH SENSITIVITY STAT 12/08/2024 2:23 PM CDT XR CHEST 2 VIEWS STAT 12/08/2024 2:00 PM CDT EKG 12-LEAD, TRACING ONLY STAT 12/08/2024 12:18 PM CDT CBC WITH PLATELETS & DIFFERENTIAL STAT 12/08/2024 12:15 PM CDT HEMOGLOBIN A1C Add-On 12/08/2024 12:15 PM CDT EXTRA RED TOP TUBE STAT 12/08/2024 12 :15 PM CDT EXTRA BLUE TOP TUBE STAT 12/08/2024 1 2:15 PM CDT CBC WITH PLATELETS AND DIFFERENTIAL STAT 12/08/2024 12:15 PM CDT TROPONIN T, HIGH SENSITIVITY STAT 12/08/2024 12:15 PM CDT EXTRA TUBE STAT 12/08/2024 12:15 PM CDT BASIC METABOLIC PANEL STAT 12/08/2024 12:15 PM CDT EKG 12-LEAD COMPLETE W/READ - CLINICS Routine 12/08/2024 11:22 AM CDT Acute chest pain MA SCREENING DIGITAL BILATERAL Routine 03/31/2012 8:32 AM CDT from Last 3 Months or Most Recently Relevant to Health Maintenance Results * ECHO EXERCISE STRESS TEST WITH CONTRAST (12/09/2024 7:48 AM CDT) Anatomical Region Laterality Modality Echocardiography 12/09/2024 7:20 AM CDT Narrative 12/09/2024 9:05 AM CDT [id number]^MARIELA^SAE^YULIANA [facility] [address] [place] [address] Name: LORIE MATTHEWS : 1945 Study Date: 12/09/2024 07:20 AM Age: 79 yrs Gender: Female Patient Location: [facility] Reason For Study: Chest Pain History: Chest Pain Ordering Physician: SAE COVARRUBIAS Referring Physician: None Performed By: Deb Fraga BSA: 1.9 m2 Height: 67 in Weight: 163 lb HR: 74 BP: 118/72 mmHg Procedure Stress Echo Treadmill with two dimensional, color and spectral Doppler. Optison contrast given intravenously [[facility] #[id number]]. Interpretation Summary Exercise stress echocardiogram was negative for ischemia or infarction at an exercise capacity of 7 METS and 94% of the target heart rate. There was no chest pain or significant ST changes with exercise. The Ro treadmill score was low risk ( >5 Ro score). Stress The patient exercised 6:18. RPP 97314. There was a normal BP response to [...] Procedure Note Sridhar Tolentino MD - 12/09/2024 [id number]^MARIELA^SAE^YULIANA [facility] [address] [place] [address] Name: LORIE MATTHEWS : 1945 Study Date: 12/09/2024 07:20 AM Age: 79 yrs Gender: Female Patient Location: [facility] Reason For Study: Chest Pain History: Chest Pain Ordering Physician: SAE COVARRUBIAS Referring Physician: None Performed By: Deb Fraga BSA: 1.9 m2 Height: 67 in Weight: 163 lb HR: 74 BP: 118/72 mmHg Procedure Stress Echo Treadmill with two dimensional, color and spectral Doppler. Optison contrast given intravenously [[facility] #[id number]]. Interpretation Summary Exercise stress echocardiogram was negative for ischemia or infarction atan exercise capacity of 7 METS and 94% of the target heart rate. There was no chest pain or significant ST changes with exercise. The Ro treadmill score was low risk ( >5 Ro score). Stress The patient exercised 6:18. RPP 93464. 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 CV ECHO ORDERABLES Ed ited Result - [...] Very High: >= 220 mg/dL us Sae Covarrubias APRN SKIDDER LEVER OPERATOR LAB - BLOOD ORDERABLE S Final Result U LABORATORY [facility] [place] [facility] [address], [address] [place] [address] LABORATORY [facility] Lab [address] Lab (1st floor, no room number) [place] [address] * CBC with platelets (12/09/2024 5:37 AM CDT) [facility] Signature WBC Count 5.2 4.0 - 11.0 10e3/uL [...] - 450 10e3/uL 12/09/2024 5:54 AM CDT LABORATORY Blood STRUCTURE OF LEFT UPPER LIMB / Unknown Venipuncture / Unknown 12/09/2024 5:37 AM CDT 12/09/2024 5:50 AM CDT Sae Covarrubias APRN SKIDDER LEVER OPERATOR LAB - BLOOD ORDERABLE S Final Result LABORATORY [facility] Lab [address] Lab (1st floor, no room number) [place] [address] * Troponin T, High Sensitivity (12/09/2024 5:36 AM CDT) Only the most recent of3 resultswithin the time period is included. [facility] Troponin T, High Sensitivity 7 <=14 ng/L 12/09/2024 6:13 AM CDT LABORATORY Comment: Either a High Sensitivity [...] AM CDT 12/09/2024 5:50 AM CDT Sae Covarrubias APRN SKIDDER LEVER OPERATOR LAB - BLOOD ORDERABLE S Final Result LABORATORY [facility] Lab [address] Lab (1st floor, no room number) [place] [address] * Basic metabolic panel (12/09/2024 5:36 AM CDT) Only the most recent of2 resultswithin the time period is included. Sodium 137 135 - 145 mmol/L 12/09/2024 [...] 12/09/2024 6:31 AM CDT LABORATORY Comment:eGFR calculated 2020 CKD-EPI equation. Calcium 9.0 8.8 - 10.4 mg/dL 12/09/2024 6:31 AM CDT LABORATORY Glucose 97 70 - 99 mg/dL 12/09/2024 6:31 AM CDT LABORATORY Blood STRUCTURE OF LEFT UPPER LIMB / Unknown Venipuncture / Unknown 12/09/2024 5:36 AM CDT 12/09/2024 5:50 AM CDT us Sae Covarrubias APRN SKIDDER LEVER OPERATOR LAB - BLOOD ORDERABLE S Final Result LABORATORY [facility] [address] Lab (1st floor, no room number) [place] [address], [facility] * EKG 12-lead, tracing only (12/08/2024 3:41 PM CDT) Only the most recent of2 resultswithin the time period is included. Systolic Blood Pressure mmHg RADIOLOGY RESULTS Diastolic Blood Pressure mmHg RADIOLOGY RESULTS Ventricular Rate 70 BPM RAD IOLOGY RESULTS Atrial Rate 70 BPM RADIOLOG Y RESULTS MO Interval 224 ms RADIOLOG Y RESULTS QRS Duration 106 ms RADIOLO GY RESULTS QT 406 ms RADIOLOGY RESULTS QTc 438 ms RADIOLOGY RESULTS P [place] 65 degrees RADIOLOGY RESULTS R AXIS -44 degrees RADIOLOGY RESULTS T [place] 48 degrees RADIOLOGY RESULTS Interpretation ECG Sinus rhythm with 1st degree A-V block Left axis deviation Minimal voltage criteria for LVH, may be normal variant ( [place] product ) Abnormal ECG When compared with ECG of 08-Dec-2024 12:18, Premature atrial complexes are no longer Present Unconfirmed report - interpretation of this ECG is computer generated - see medical record for final interpretation Confirmed by - EMERGENCY ROOM, PHYSICIAN ([id number]), frozen pie maker Sylvester Hartman ([id number]) on 12/08/2024 3:48:33 PM RADIOLOGY RESULTS 12/08/2024 3:41 PM CDT 12/08/2024 3:48 PM CDT Nathalia Bates MD ECG ORDERABLES Edited Resul t - Final RADIOLOGY RESULTS * TSH with free T4 reflex (12/08/2024 2:23 PM CDT) TSH 1.40 0.30 - 4.20 uIU/mL 12/08/2024 8:30 PM CDT RH LABORATORY Blood STRUCTURE OF LEFT UPPER LIMB / Unknown Venipuncture / Unknown 12/08/2024 2:23 PM CDT 12/08/2024 2:35 PM CDT Sae Covarrubias APRN SKIDDER LEVER OPERATOR LAB - BLOOD ORDERABLE S Final Result RH LABORATORY [facility] Lab [address] Lab (1st floor, no room number) [place] [address], [facility] * Chest XR, PA & LAT (12/08/2024 2:00 PM CDT) Anatomical Region Laterality Modality Chest Computed Radiogr aphy 12/08/2024 2:00 PM CDT Impressions 12/08/2024 2:04 PM CDT IMPRESSION: No focal airspace opacities, pleural effusion or pneumothorax. The cardiomediastinal silhouettes are normal. Narrative 12/08/2024 2:04 PM CDT EXAM: XR CHEST 2 VIEWS LOCATION: [facility] DATE: 12/08/2024 INDICATION: Central chest pain lasted ~ 15min COMPARISON: None. Procedure Note Ainsley Gr MD - 12/08/2024 EXAM: XR CHEST 2 VIEWS LOCATION: [facility] DATE: 12/08/2024 INDICATION: Central chest pain lasted ~ 15min COMPARISON: None. IMPRESSION: No focal airspace opacities, pleural effusion or pneumothorax.The cardiomediastinal silhouettes are normal. us Nathalia Bates MD IMG DIAGNOSTIC IMAGING ORDER JUSTIN Final Result * Extra Red Top Tube (12/08/2024 12:15 PM CDT) Hold Specimen [facility] 12/08/2024 1:32 PM CDT LABORATORY Blood STRUCTURE OF LEFT UPPER LIMB / Unknown Venipuncture / Unknown 12/08/2024 12:15 PM CDT 12/08/2024 12:23 PM CDT us Nathalia Bates MD LAB - BLOOD ORDERABLES Final Result Performing Organization Address City/[facility]/ZIP Co de Phone Number [facility] Acute Care Lab [address] Lab (1st floor, no room number) [place] [address] * Extra Blue Top Tube (12/08/2024 12:15 PM CDT) Hold Specimen [facility] 12/08/2024 1:32 PM CDT LABORATORY Blood STRUCTURE OF LEFT UPPER LIMB / Unknown Venipuncture / Unknown 12/08/2024 12:15 PM CDT 12/08/2024 12:23 PM CDT us Nathalia Bates MD LAB - BLOOD ORDERABLES Final Result RH LABORATORY [facility] Lab [address] Lab (1st floor, no room number) [place] [address], [facility] * CBC with platelets and differential (12/08/2024 [...] MD LAB - BLOOD ORDERABLES Final Result [facility] Lab [address] Lab (1st floor, no room number) [place] [address] * Hemoglobin A1c (12/08/2024 12:15 PM CDT) Pathologist [facility] Estimated Average Glucose 105 <117 mg/dL 12/08/2024 9:10 PM CDT LABORATORY Hemoglobin A1C 5.3 <5.7 % 12/08/2024 9:10 PM CDT LABORATORY Comment: Normal <5.7% Prediabetes 5.7-6.4% Diabetes 6.5% or higher Note: Adopted from ADA consensus guidelines. Blood STRUCTURE OF LEFT UPPER LIMB / Unknown Venipuncture / Unknown 12/08/2024 12:15 PM CDT 12/08/2024 12:23 PM CDT us Sae Covarrubias APRN, CNP LAB - BLOOD ORDERABLE S Final Result [facility] Acute Care Lab [address] Lab (1st floor, no room number) [place] [address] * EKG 12-lead complete w/read - Clinics (12/08/2024 11:22 AM CDT) Sintia Mitchell PA-C ECG ORDERABLES Final Result * Mammo Screening digital (bilat) (03/31/2012 8:32 AM CDT) Anatomical Region Laterality Modality Breast Bilateral Other 03/31/2012 8:32 AM CDT Impressions 03/31/2012 9:56 AM CDT SCREENING MAMMOGRAM, BILATERAL, DIGITAL w/CAD - 03/31/2012 8:32 AM BREAST SYMPTOMS: No current breast complaints. COMPARISON: 01/22/2011, 09/23/2008 PARENCHYMAL PATTERN: Heterogeneously dense, this lowers mammographic sensitivity. COMMENTS: No findings of suspicion for malignancy. IMPRESSION: BI-RADS 1, NEGATIVE RECOMMENDATION: Annual screening mammography. Ai Soria MD IMG MAMMOGRAPHY ORDERABLE S Edited from Last 3 Months or Most Recently Relevant to Health [place] [id number] [facility] [employer] MEDICARE [facility] [employer] Advance Directives For more information, please contact: [phone] * No CPR- Pre-arrest intubation OK (Latest Code Status on File) Date Activated Date Inactivated Comments 12/08/2024 8:31 PM 12/09/2024 2:32 PM No attempts to restore cardiac function following arrest. Intubation to prevent or reverse respiratory instability may be performed. Question Answer Comments Code status determined by: Discussion with patie nt/ legal decision maker * Full Code Date Activated Date Inactivated Comments 12/08/2024 6:51 PM 12/08/2024 8:31 PM All basic a nd advanced life-sustaining interventions are performed as appropriate Question Answer Comments Code status determined by: Discussion with patie nt/ legal decision maker Care Teams Credit And Collections Representative Relationship Specialty Start Date End Date No Ref-Primary, Physician PCP - General 08/15/24
--- OUTSIDE RECORDS SUMMARY | 2024-12-23 00:26 | XMS_ITS | Clinical Summary ---
Author Organization [facility] Address [address] [place] [address] Care Team Providers Care Career Services Coordinator Name Role Phone Elsewhere, Pcp Primary Care Provider Unavailabl e Source Comments Patient records contain information from all sites at [facility]. For routine questions regarding patient records, call [phone] during business hours, M-F 8:00 AM - 5:00 PM Central Time. Record requests for emergency care only can be directed to [phone] at any time.[facility] Allergies No known active allergies Medications FLUoxetine (PROzac) 20 mg capsule Take 20 mg by mouth daily. Active simvastatin (ZOCOR) 20 mg tablet Take 20 mg by mouth at bedtime. Active multivitamin (multivitamin) tablet Take 1 tablet by mouth daily. Active calcium carbonate-vitami n D3 (CALCIUM 500 + D) 1,250 mg (500 mg calcium)-200 unit per tablet Take 1 tablet by mouth daily with breakfast. Active amLODIPine (NORVASC) 5 mg tablet 06/10/2022 Active losartan (COZAAR) 100 mg tablet 04/23/2022 Active ibuprofen 200 mg tablet Take 400 mg by mouth. 10/16/2023 Active Social History Tobacco Use Types Packs/Day Years Used Date Smoking Tobacco: Former Smokeless Tobacco: Never Comments:Stopped smoking 37 years ago. Used apx 1 pack per day Alcohol Use Standard Drinks/Week Comments Yes 7 (1 standard drink = 0.6 oz pur e alcohol) [facility] Utilities Answer Date Recorded In the past 12 months has e [employer], gas, oil, or water company threatened to shut off services in your home? No 05/21/2024 Humiliation, Afraid, Rape, and Kick questionnair e [...] by your partner or ex-partner? No 06/18/2022 Hunger Vital Sign Answer Date Recorded Within the past 12 months, y ou worried that your food would run out before you got the money to buy more. Never true 05/21/20 24 Within the past 12 months, t he food you bought just didn't last and you didn't have money to get more. Never true 05/21/2024 PRAPARE - Transportation Answer Date Re corded In the past 12 months, has l ack of transportation kept you from medical appointments or from getting medications? No 05/01 In the past 12 months, has l ack of transportation kept you from meetings, work, or from getting things needed for daily living? No 05/21/2024 Housing Stability Answer Date Recorded What is your living situation today? I have a [employer] place to live 05/21/2024 Education Answer Date Recorded What is the highest level of school you have completed or the highest degree you have received? 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 WORKER FITTER Plan of Treatment Health Maintenance Due Date Last Done Comments Creatinine Level (Kidney Function Test) 1945 Hepatitis C Screening 1945 Potassium Level 1945 Sodium Level 1945 Depression Screening (Annual PHQ-2) 06/30/2024 Fall Risk Screen (Annual) 06/30/2024 COVID-19 Vaccine ( season) 2024 03/22/2024, 10/16/2023, 03/26/2023, Additional history exists DTaP,Tdap,and Td Vaccines (3 - Td or Tdap) 05/05/2028 05/05/2018, 08/27/2007 Pneumococcal vaccine (50+ years) Completed 03/24/2015, 01/26/2013 Zoster Vaccines Completed 06/18/2019, 01/2019, 04/01/2012 RSV vaccine - (32-36 weeks) or 60+ years Completed 06/03/2023 Influenza Vaccine Completed 03/22/2024, , 04/03/2022, Additional history exists IPV Vaccines Aged Out No longer eligi ble based on patient's age to complete this topic Medical Devices Implanted Type Area Belt Builder Device Identifier Shelf Expiration Date Model / Serial / Lot Hardware E.G. Pins/Screws/R ods Hardware e.g. pins/screws/ rods Left: Ankle Hip Implant-2022 Implanted:09/2022 (Quantity not on file) Hip Implant Right: Hip Insurance MEDICARE [facility] Care Teams Career Services Coordinator Relationship Specialty Start Date End Date Elsewhere, Pcp PCP - General Family Medicine 03/10/18
--- OUTSIDE RECORDS SUMMARY | 2024-12-23 00:27 | XMS_ITS | Encounter Summary ---
Author Organization [facility] Address [facility] [facility] 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
== END 2024-12-22 12:40 | disposition home or self-care (01) ==
LOC: RAD 12:40
PROVIDERS: PCP Physician Assistant Medical; Visit Provider Physician Assistant Medical
DX: M85.80 Other specified disorders of bone density and structure, unspecified site (principal); M85.89 Other specified disorders of bone density and structure, multiple sites; Z78.0 Asymptomatic menopausal state
CPT/HCPCS: 77080